=== PATIENT | female | born 1950 | race Caucasian/White ===

== ENCOUNTER → 2018-10-13 13:25 | Outpatient (CLI) | payer MEDICARE, OTHER, SELFPAY ==
--- NOTE | 2018-10-13 13:31 | BI_ITS ---
MAMMOGRAPHY - BILATERAL SCREENING REASON FOR EXAM: Female, 68 years old. Routine annual screening examination. PERTINENT HISTORY: Aunt with breast cancer. Remote right stereotactic breast biopsy. TECHNIQUE: Digital bilateral breast christofer (3D mammographic acquisition) in the CC and MLO projections. 2-D mediolateral oblique (MLO) and craniocaudad (CC) views of both breasts were obtained. CAD: Full Field Digital Mammography with Computer Added Detection was performed. COMPARISON: Comparison is made with prior study dated September 16, 2017 and September 01, 2016. FINDINGS: Breast Composition: The breasts are almost entirely fatty. There are no dominant masses or suspicious calcifications. Stable benign-appearing bilateral axillary lymph nodes. No other significant abnormalities are identified. There has been no significant change since the prior study. BI/SCREENING MAMM (CAD), BILAT IMPRESSION: Stable bilateral screening mammogram. Yearly follow-up mammogram recommended. (A) ASSESSMENT CATEGORY: BIRADS Category 1: Negative. A letter regarding these results will be sent to the patient by the facility within 30 days. Approximately 10% of breast cancers are not detected by mammography. A normal mammogram should not delay biopsy of a clinically suspicious abnormality. [id number] Electronically Signed: Seth Win MD at 15:55 EST , Service support ,
== END ==
PROVIDERS: Family Provider Internal Medicine; PCP Internal Medicine; Referring Provider Internal Medicine; Visit Provider Internal Medicine
DX: Z12.31 Encounter for screening mammogram for malignant neoplasm of breast (principal)
CPT/HCPCS: 77063; 77067

== ENCOUNTER → 2019-08-22 09:06 | Outpatient (CLI) | payer MEDICARE, OTHER, SELFPAY ==
[2017-01-23 17:04] VITALS: BMI 31.9
--- NOTE | 2019-08-22 09:16 | BD_ITS ---
STUDY: DUAL ENERGY X-RAY ABSORPTIOMETRY / DXA REASON FOR EXAM: Female, 69 years old. The patient is postmenopausal. TECHNIQUE: Bone Mineral Density (BMD) measurements of lumbar spine and bilateral hips were obtained. COMPARISON: Loss of height. FINDINGS: Lumbar Spine (L1-L4): g/cm2 (1.309) / T-score (1.1) / Z-score (2.7) Findings are suggestive of normal bone density with a low fracture risk. Left Femur Total: g/cm2 (1.118) / T-score (0.9) / Z-score (2.2) Left Femoral Neck: g/cm2 (0.973) / T-score (-0.5) / Z-score (1.1) Right Femur Total: g/cm2 (1.103) / T-score (0.8) / Z-score (2.1) Right Femoral Neck: g/cm2 (1.021) / T-score (-0.1) / Z-score (1.4) The T-Scores on the most recent prior examination were: Lumbar Spine (L1-L4): There has been worsening of bone density since the previous examination. Left Femur Total: which represents a worsening of 6.4%. Right Femur Total: which represents a worsening of 4.9%. BD/Dexa Bone Density Study IMPRESSION: The patient is considered normal as outlined below according to World Pablo Organization (WHO) criteria with a low fracture risk. There has been worsening of bone density since the previous examination. Reference Information: The T-score is the number of standard deviations above or below the standard which is normal for young adults at their peak bone mineral density. The World Health Organization (WHO) interprets the T-scores as follows: Above -1 Normal bone density Between -1 and -2.5 Osteopenia Equal to / or below -2.5 Osteoporosis As a practical clinical guideline, osteopenia may be graded as follows: Mild -1 through -1.5 Moderate -1.6 through -2.0 Severe -2.1 through -2.4 The Z-score is the number of standard deviations above or below age-matched controls. A Z-score of less than -1.5 would be considered abnormal. References: 1. NIH Osteoporosis and Related Bone Diseases http://www.osteo.org 2. International Society for Clinical Densitometry http://www.iscd.org 3. National Osteoporosis Foundation http://www.nof.org Electronically Signed: Seth Win, at 14:27 EST , Service support ,
== END ==
PROVIDERS: Family Provider Internal Medicine; PCP Internal Medicine; Referring Provider Internal Medicine; Visit Provider Internal Medicine
DX: Z78.0 Asymptomatic menopausal state (principal)
CPT/HCPCS: 77080

== ENCOUNTER → 2019-10-16 10:50 | Outpatient (CLI) | payer MEDICARE, OTHER, SELFPAY ==
[2017-01-23 17:04] VITALS: BMI 31.9
--- NOTE | 2019-10-16 10:54 | BI_ITS ---
MAMMOGRAPHY - BILATERAL SCREENING REASON FOR EXAM: Female, 69 years old. Routine annual screening examination. PERTINENT HISTORY: Aunt with breast cancer. Remote right stereotactic breast biopsy. TECHNIQUE: Digital bilateral breast liza (3D mammographic acquisition) in the CC and MLO projections. 2-D mediolateral oblique (MLO) and craniocaudad (CC) views of both breasts were obtained. CAD: Full Field Digital Mammography with Computer Added Detection was performed. COMPARISON: Comparison is made with prior study dated April 12, 2019 and September 16, 2017. FINDINGS: Breast Composition: There are scattered areas of fibroglandular density. There are no dominant masses or suspicious calcifications. Stable benign-appearing bilateral axillary lymph nodes. No other significant abnormalities are identified. There has been no significant change since the prior study. BI/SCREEN MAMM (CAD) W/LIZA BILAT IMPRESSION: Stable bilateral screening mammogram. Yearly follow-up mammogram recommended. (A) ASSESSMENT CATEGORY: BIRADS Category 2: Benign. A letter regarding these results will be sent to the patient by the facility within 30 days. Approximately 10% of breast cancers are not detected by mammography. A normal mammogram should not delay biopsy of a clinically suspicious abnormality. [id number] Electronically Signed: Seth Win, at 12:00 EST , Service support ,
== END ==
PROVIDERS: Family Provider Internal Medicine; PCP Internal Medicine; Referring Provider Internal Medicine; Visit Provider Internal Medicine
DX: Z12.31 Encounter for screening mammogram for malignant neoplasm of breast (principal)
CPT/HCPCS: 77063; 77067

== ENCOUNTER 2020-04-11 05:55 | Day surgery (SDC) | payer MEDICARE, OTHER, SELFPAY ==
[2020-03-13 07:39] VITALS: BMI 25.4
[2020-04-11] VITALS (9 sets, daily range): BP systolic 99–133; BP diastolic 55–77; PULSE 62–77; RESP 16–18; TEMP 36.1–36.3; O2SAT 99–100; BMI 25.4
--- NOTE | 2020-04-11 06:11 | PCM.HP.BLA ---
Problem List (1) Personal history of colonic polyps Status: Acute History and Physical Date of Admission: 04/11/20 Intake Visit Reasons: Due for 5yr C-Scope last done [facility] Allergies mezlocillin [From Mezlin] Allergy (Verified 03/13/20 07:41) Itching morphine Allergy (Verified 03/13/20 07:41) Itching CAT GUT SUTURES Adverse Reaction (Uncoded 03/13/20 07:41) Other VICRYL SUTURES Adverse Reaction (Uncoded 03/13/20 07:41) Other Medications Aspirin 81 mg PO 08/25/16 [History Confirmed 03/13/20] Multivit-Minerals/Folic Acid [One Daily Womens 50 Plus Tab] 0.4 mg PO 08/25/16 [History Confirmed 03/13/20] cholecalciferol (vitamin D3) 125 mcg (5,000 unit) capsule 125 mcg PO DAILY 03/13/20 [History Confirmed 03/13/20] omega-3 fatty acids 500 mg PO DAILY 03/13/20 [History] triamterene 37.5 mg-hydrochlorothiazide 25 mg tablet 1 tab PO DAILY 03/13/20 [History Confirmed 03/13/20] PFSH Medical History (Updated 03/13/20 @ 07:[address] Andrea Doshi MD) Skin lesion (Acute) Personal history of colonic polyps (Acute) Hypertension (Chronic) History of diverticulitis (Acute) Hemorrhoids (Acute) Constipation (Acute) Arthritis (Acute) Back problem (Acute) Surgical History (Updated 03/13/20 @ 07:37 by Lily Petersen) Hx of right breast biopsy (Acute) History of partial colectomy (Acute) Hx of abdominal surgery (Acute) Hx of appendectomy (Acute) Hx of tonsillectomy (Acute) Family History (Updated 03/13/20 @ 07:38 by Lily Petersen) Mother Arthritis Diabetes Hypertension Kidney disease Cancer Skin cancer High cholesterol Father Glioblastoma Social History (Updated 03/13/20 @ 07:[address] Andrea Doshi MD) Smoking Status: Never smoker second hand exposure: No alcohol intake: current alcohol intake frequency: holidays/special occasions only caffeine: Yes what type of physical activity do you participate in: running, aerobics, weight training, additional details: [employer] camp videos frequency: 5-6 times per week HPI HPI HPI: NEY VERDUZCO, is a 69 F who presents to the office today for surgical consultation regarding a colonoscopy. Her most recent colonoscopy was November 27, 2014. That was performed because of a personal history of colon polyps. There was evidence of a previous end-to-end colocolonic anastomosis in the distal sigmoid region. A few diverticulosis identified. No recurrent polyps at that time. The patient has previously undergone on May 15, 2010 a laparoscopic left colectomy with mobilization of the left colon and splenic flexure for acute sigmoid diverticulitis. The specimen measured 28 cm in length. She fortunately has not had any recurrent episodes of diverticulitis. She does however complain of chronic constipation. On occasion her bowels will function well. Occasionally she has to take MiraLAX to assist. She thought that fiber supplement worsened her condition. She has lost 40 pounds in weight over the past year. She has done an excellent job at self rehabilitation exercising and dieting. She denies bright red blood per rectum or melena. No abdominal pain. Her Alexander is also participated in this program HPI HPI HPI: NEY VERDUZCO, is a 69 F who presents to the office today for Exam Const General: cooperative, healthy appearing Nutritional Appearance: average body habitus Orientation: alert, awake HENMT Head: normal to inspection Chest Chest palpation & inspection: normal inspection of the chest Resp Effort & Inspection: normal respiratory effort Auscultation: clear to auscultation bilaterally Cardio Rate: regular rate Rhythm: regular rhythm GI Palpation: soft, no hepatosplenomegaly Skin Other: Left upper breast: 8 mm diameter slightly erythematous lesion. Not raised. Extrem General: no calf tenderness Psych Affect: normal affect Assessment & Plan Problems 1. Personal history of colonic polyps Z86.010 2. Skin lesion L98.9 3. Chronic constipation K59.09 Plan 69-year-old female with an intentional 40 pound weight loss over the past year. Now participating in routine diet and exercise. She has a personal history of colon polyps. She has a personal history of May 15, 2010 of a laparoscopic left colectomy performed for perforated sigmoid diverticulitis. She does have chronic constipation intermittently has to take MiraLAX. I propose for her a colonoscopy with possible biopsy or polypectomy is indicated. She has had an opportunity to ask and have questions answered. We will schedule and proceed at her discretion. I was previously able to accomplish this with meperidine 100 g and medazepam 4.5 mg IV. 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 The area on her account is improving. I have instructed her that if the area were to worsen that she should contact us and we would then prescribe Efudex therapy. With the amount of sun exposure that she currently is getting I am not prescribing it at this moment. Cc: Dr. Manjula Doshi M.D., F.A.C.S. Coding Level of Care Code Off vis,est,level 2 Diagnoses Personal history of colonic polyps Z86.010 Skin lesion L98.9 Chronic constipation K59.09 I have re-examined the patient. There are no clinical changes since date of exam. Procedure Criteria Procedure Type: Elective COVID Risk Discussion: The surgeon/proceduralist and patient have discussed in detail the risk of exposure to and/or potential harm posed by the COVID-19 virus with having a surgery/procedure at this time versus the risk of delaying the surgery/procedure. It is not possible to know either the risk of delaying the surgery or procedure or chance of getting an infection with perfect accuracy, but a joint decision was made between the patient and the surgeon/proceduralist to proceed at this time with the scheduled surgery/procedure as indicated on the consent form.
[2020-04-11] MEDS: Lactated Ringers 1,000 ML 100 ML IV (06:22)
--- NOTE | 2020-04-11 07:00 | COLBX_PTH ---
PATIENT: NEY VERDUZCO LOC: EN U#:[id number] AGE/SX: 69/F ROOM: RE04/11/[address]: Dr. Andrea Doshi MD : 1950 BED: DIS: 04/11/2020 SPEC #: [id number] RECD: 04/11/20 10:03 STATUS: MIGUEL CIRA #: [id number] DWAINE: 04/11/20 07:[address]: Andrea Doshi DEPT: SURGICAL PATHOLOGY RECD BY: Jett Lyons ENTERED: 04/11/20 10:47 SP TYPE: COLON BX OTHR DR: Dr. Manjula Coleman MD Tissues: Sigmoid colon biopsy Procedures: Surgery Specimen Level IV HEADER OPERATION: Colonoscopy (MOD) PRE-OP DIAGNOSIS: History of colon polyps TISSUE SUBMITTED: Proximal sigmoid polyp biopsy MICROSCOPIC DIAGNOSIS Proximal sigmoid polyp, biopsy: A fragment of colonic mucosa with focal adenomatous changes (early tubular adenoma). SJ:josé miguel 04/14/20 MICROSCOPIC DESCRIPTION Slides are reviewed. GROSS DESCRIPTION Received in fixative is one container labeled with the patient's name and designated proximal sigmoid polyp. The specimen consists of one irregular fragment of light dickerson soft tissue that measures 0.3 x 0.3 x 0.1 cm. The specimen is totally submitted in one cassette. / GUERA:josé miguel 04/11/20 TC:1 CPT: 43495
--- NOTE | 2020-04-11 07:18 | OP.CCLET_ITS ---
04/11/2020 Manjula Coleman [address] [place] [address] Re : Colonoscopy procedure for Hallie Betts Dear Dr. Coleman This procedure was performed on Saturday, April 11, 2020. My impressions and recommendations are as follows: Impressions : - Hemorrhoids found on perianal exam. - One 4 mm polyp in the proximal sigmoid colon, removed with a cold biopsy forceps. Resected and retrieved. - Diverticulosis in the sigmoid colon. - Patent end-to-end colo-colonic anastomosis, characterized by healthy appearing mucosa. Recommendations : - Discharge patient to home. - Resume previous diet. - Continue present medications. - Repeat colonoscopy in 5 years for surveillance based on pathology results. - Telephone my office for pathology results in 1 week. My findings are described in the full procedure note, which is enclosed. If I can be of further assistance, please feel free to contact me at Doctor phone number(s): Work: . Sincerely, Andrea Doshi MD 04/11/2020 7:18:01 AM This report has been signed electronically.
--- NOTE | 2020-04-11 07:18 | OP.COLON_ITS ---
Patient Name: Hallie Betts Procedure Date: 04/11/2020 6:48 AM Date of : 1950 Age: 69 Procedure: Colonoscopy Indications: High risk colon cancer surveillance: Personal history of colonic polyps Providers: Andrea Doshi MD Referring MD: Manjula Coleman Medicines: Midazolam 3.5 mg IV, Meperidine 100 mg IV Patient Profile: Last Colonoscopy: November 2014. Complications: No immediate complications. Procedure: Pre-Anesthesia Assessment: - Prior to the procedure, a History and Physical was performed, and patient medications and allergies were reviewed. The patient's tolerance of previous anesthesia was also reviewed. The risks and benefits of the procedure and the sedation options and risks were discussed with the patient. All questions were answered, and informed consent was obtained. Prior Anticoagulants: The patient has taken no previous anticoagulant or antiplatelet agents. ASA Grade Assessment: II - A patient with mild systemic disease. After reviewing the risks and benefits, the patient was deemed in satisfactory condition to undergo the procedure. After I obtained informed consent, the scope was passed under direct vision. Throughout the procedure, the patient's blood pressure, pulse, and oxygen saturations were monitored continuously. The pediatric colonoscope was introduced through the anus and advanced to the cecum, identified by appendiceal orifice and ileocecal valve. The colonoscopy was performed without difficulty. The patient tolerated the procedure well. The quality of the bowel preparation was adequate to identify polyps. The ileocecal valve and the appendiceal orifice were photographed. Moderate Sedation: Moderate (conscious) sedation was personally administered by the endoscopist. The following parameters were monitored: oxygen saturation, heart rate, blood pressure, and response to care. Total physician intraservice time was 15 minutes. Scope In: 7:01:25 AM Scope Withdrawal Time 0 hours 7 minutes 34 seconds Scope Out: 7:13:13 AM Total Procedure Duration Time 0 hours 11 minutes 48 seconds Findings: Hemorrhoids were found on perianal exam. A 4 mm polyp was found in the proximal sigmoid colon. The polyp was sessile. The polyp was removed with a cold biopsy forceps. Resection and retrieval were complete. Scattered diverticula were found in the sigmoid colon. There was evidence of a prior end-to-end colo-colonic anastomosis in the distal sigmoid colon. This was patent and was characterized by healthy appearing mucosa. Impression: - Hemorrhoids found on perianal exam. - One 4 mm polyp in the proximal sigmoid colon, removed with a cold biopsy forceps. Resected and retrieved. - Diverticulosis in the sigmoid colon. - Patent end-to-end colo-colonic anastomosis, characterized by healthy appearing mucosa. Recommendation: - Discharge patient to home. - Resume previous diet. - Continue present medications. - Repeat colonoscopy in 5 years for surveillance based on pathology results. - Telephone my office for pathology results in 1 week. Procedure Code(s): --- Professional --- 90058, Colonoscopy, flexible; with biopsy, single or multiple 12529, 59, Moderate sedation services provided by the same physician or other qualified health vocational childcare teacher performing the diagnostic or therapeutic service that the sedation supports, requiring the presence of an independent trained observer to assist in the monitoring of the patient's level of consciousness and physiological status; initial 15 minutes of intraservice time, patient age 5 years or older Diagnosis Code(s): --- Professional --- Z86.010, Personal history of colonic polyps K64.9, Unspecified hemorrhoids D12.5, Benign neoplasm of sigmoid colon Z98.0, Intestinal bypass and anastomosis status K57.30, Diverticulosis of large intestine without perforation or abscess without bleeding CPT copyright 2017 [employer]. All rights reserved. The codes documented in this report are preliminary and upon certified procedural coder review may be revised to meet current compliance requirements. Andrea Doshi MD 04/11/2020 7:18:01 AM This report has been signed electronically. Number of Addenda: 0 Note Initiated On: 04/11/2020 6:48 AM
== END 2020-04-11 08:00 | disposition home or self-care (01) ==
LOC: EN 05:56 → AC 05:57
PROVIDERS: PCP Internal Medicine; Referring Provider Internal Medicine; Visit Provider Surgery
PROC: 0DJD8ZZ Inspection of Lower Intestinal Tract, Via Natural or Artificial Opening Endoscopic (ICD-10-PCS; CPT 45378; principal; 2020-04-11 06:55)
DX: Z12.11 Encounter for screening for malignant neoplasm of colon (principal); Z87.19 Personal history of other diseases of the digestive system; Z11.59 Encounter for screening for other viral diseases; Z79.899 Other long term (current) drug therapy; Z79.82 Long term (current) use of aspirin; I10 Essential (primary) hypertension; M19.90 Unspecified osteoarthritis, unspecified site; K59.09 Other constipation; K64.9 Unspecified hemorrhoids; K57.30 Diverticulosis of large intestine without perforation or abscess without bleeding; D12.5 Benign neoplasm of sigmoid colon; Z98.0 Intestinal bypass and anastomosis status
CPT/HCPCS: 45380; 87635; 88305; 99152; 99153; G2023; J7120; U0003

== ENCOUNTER → 2020-10-20 10:38 | Outpatient (CLI) | payer MEDICARE, OTHER, SELFPAY ==
[2020-04-11 06:16] VITALS: BMI 25.4
--- NOTE | 2020-10-20 10:44 | BI_ITS ---
MAMMOGRAPHY - BILATERAL SCREENING REASON FOR EXAM: Female, 70 years old. Routine annual screening examination. PERTINENT HISTORY: Aunt with breast cancer. TECHNIQUE: Digital bilateral breast liza (3D mammographic acquisition) in the CC and MLO projections. 2-D mediolateral oblique (MLO) and craniocaudad (CC) views of both breasts were obtained. CAD: Full Field Digital Mammography with Computer Added Detection was performed. COMPARISON: Comparison is made with prior examination dated 10/16/2019 and 10/13/2018. FINDINGS: Breast Composition: There are scattered areas of fibroglandular density. There are no dominant masses or suspicious calcifications. Stable small benign-appearing bilateral axillary lymph nodes. No other significant abnormalities are identified. There has been no significant change since the prior study. BI/SCRN MAMM (CAD)W/LIZA BILAT IMPRESSION: Stable bilateral screening mammogram. Yearly follow-up mammogram recommended. (A) ASSESSMENT CATEGORY: BIRADS Category 2: Benign. A letter regarding these results will be sent to the patient by the facility within 30 days. Approximately 10% of breast cancers are not detected by mammography. A normal mammogram should not delay biopsy of a clinically suspicious abnormality. [id number] Electronically Signed: Seth Win MD at 14:39 EST , Service support ,
== END ==
PROVIDERS: PCP Internal Medicine; Referring Provider Internal Medicine; Visit Provider Internal Medicine
DX: Z12.31 Encounter for screening mammogram for malignant neoplasm of breast (principal)
CPT/HCPCS: 77063; 77067

== ENCOUNTER 2021-07-13 11:56 | Emergency (ER) | payer MEDICARE, OTHER, SELFPAY ==
[2021-07-13 11:57] VITALS: BP 151/92; PULSE 78; RESP 20; TEMP 36.3; O2SAT 99; BMI 25.2
--- NOTE | 2021-07-13 12:10 | EKG12_ITS ---
Test Reason : R CP & BACK PAIN Blood Pressure : / mmHG Vent. Rate : 068 BPM Atrial Rate : 068 BPM P-R Int : 140 ms QRS Dur : 084 ms QT Int : 400 ms P-R-T Axes : 063 031 047 degrees QTc Int : 425 ms Normal sinus rhythm with occasional PVC's Confirmed by FLAKITO JESSICA, YUNIOR ([id number]), publishing editor MICHAEL RODRIGUEZ ([id number]) on 07/15/2021 9:04:17 AM Referred By: LAY/KOJO Confirmed By:YUNIOR FRAGA MD
[2021-07-13 12:50] LABS: Absolute Lymphocyte Count 0.91 X10^3/uL (0.83-4.51); Absolute Neutrophil Count 7.5 X10^3/uL (2.0-7.7); Basophil# 0.02 X10^3/uL; Basophil% 0.2 % (0-1); Eosinophil# 0.13 X10^3/uL; Eosinophils% 1.4 % (0-5); Hematocrit 45.8 % (37-47); Lymphocyte # 0.91 X10^3/ul (0.83-4.51); Lymphocyte % 10.1 % (19-41); Mean Corp Hgb Conc 32.8 g/dL (32-36); Mean Corpuscular Hgb 29.1 pg (27.0-32.0); Mean Corpuscular Volume 88.9 fL (81-99); Mean Platelet Vol. 10.2 fl (6.2-12.0); Monocyte# 0.37 X10^3/uL; Monocyte% 4.1 % (0-10); NRBC Flagged by Analyzer 0 % (0-5); Neutrophil # 7.54 X10^3/uL (2.7-7.7); Neutrophil % 83.9 % (47-70); Platelet Count 238 K/mm3 (150-450); RBC Distribution Width CV 12.6 % (11.6-14.6); RBC Distribution Width SD 41.5 fl (35.1-43.9); Red Blood Count 5.15 M/mm3 (4.2-5.4)
[2021-07-13] MEDS: 0.9% Normal Saline 1,000 ML 999 ML IV (12:50)
[2021-07-13] MEDS: Ketorolac 30 MG/ML Syringe IV (12:50)
[2021-07-13] MEDS: Orphenadrine 60 MG/2 ML Ampul IV (12:50)
[2021-07-13 12:57] LABS: Prothrombin Time (Protime)PT. 12.7 SECONDS (11.7-14.9)
[2021-07-13 12:59] LABS: Partial Thromboplast Time 27.8 Seconds (24.1-36.2)
[2021-07-13 13:07] LABS: Anion Gap 6 (5-15); BUN 20 mg/dL (7-18); BUN/Creat Ratio 18.7 RATIO (10-20); Calcium,Total 9.2 mg/dL (8.5-10.1); Chloride 102 mmol/L (98-107); Creatinine, Serum 1.07 mg/dL (0.55-1.02); EST Glomerular Filtration Rate 54 mL/min (>60); Est Glom Filt Rate - Afr Amer 65 mL/min (>60); Estimated Creatinine Clearance 46.45 ml/min; Glucose 116 mg/dL (74-106); Potassium 4.3 mmol/L (3.5-5.1); Sodium Level 138 mmol/L (136-145); Troponin-I HS 5 pg/mL (3.0-54.0)
--- NOTE | 2021-07-13 13:25 | CT_ITS ---
STUDY: CTA CHEST REASON FOR EXAM: Female, 71 years old. Chest pain / ? PE RADIATION DOSAGE (If Supplied By Facility): CTDIvol = ( 10.30 ) mGy, DLP = ( 391.49 ) mGycm TECHNIQUE: The examination was performed with the intravenous administration of IV 100mL Isovue-300. Post-processing of the angiographic images was performed, with multiplanar reformation and 3D reconstruction. Individualized dose optimization techniques were used for this CT. COMPARISON: None. FINDINGS: Normal enhancement of the main pulmonary artery and right and left pulmonary arteries. Normal enhancement of the bilateral peripheral pulmonary arteries. There is no demonstrated pulmonary embolism. Normal thoracic aorta and visualized great vessels. There is no demonstrated aortic dissection. Normal heart and pericardium. Normal mediastinum. Normal hilar regions. Normal visualized trachea and bronchi. The lungs are well expanded. There is a 2.3 cm x 2 cm cyst in the posterior aspect of the right upper lobe. Mild degree of emphysematous changes. Mild degree of increased markings at the lung bases suggests mild linear atelectasis and/or scarring Normal pleura. Normal chest wall structures. Normal osseous structures. There is a 2.7cm x 2.5 cm cyst in the lateral upper pole of the left kidney. Small hiatal hernia. CT/CTA Chest W/WO Contrast IMPRESSION: No evidence of pulmonary embolism. Small bulla in the posterior aspect of the right upper lobe. Mild degree of emphysematous changes. Electronically Signed: Seth Win MD at 14:08 EDT , Service support ,
[2021-07-13] MEDS: Ondansetron 4 MG/2 ML Vial IV (14:31)
[2021-07-13] MEDS: HYDROmorphone 1 MG/ML Syringe IV (14:31)
--- NOTE | 2021-07-13 14:47 | EDS_ITS ---
HPI History of Present Illness Chief Complaint: Back Narrative Narrative: Patient is a 71-year-old female who states that she noticed some mild pain in her right upper back with no trauma the other day. She states she went to go running this morning and with each step felt pain in her right upper back. She states that she went to an urgent care who advised her to come to the hospital for further evaluation because of the upper back pain. She denies any fevers or chills she denies any recent surgery or travel or history of DVT/PE. She does state the area is painful with palpation and does worsen with any type of motion. [facility] Medical History Arthritis Back problem Constipation Hemorrhoids History of diverticulitis Hypertension Personal history of colonic polyps Skin lesion Home Medications aspirin 81 mg PO DAILY 08/25/16 [History Last Taken 01/23/17] multivit with min-folic acid 0.4 mg PO DAILY 08/25/16 [History Last Taken 01/23/17] cholecalciferol (vitamin D3) 125 mcg (5,000 unit) capsule 125 mcg PO DAILY 03/13/20 [History Last Taken Unknown] omega-3 fatty acids 500 mg PO DAILY 03/13/20 [History Last Taken Unknown] triamterene 37.5 mg-hydrochlorothiazide 25 mg tablet 1 tab PO DAILY 03/13/20 [History Last Taken 04/11/20] methocarbamol 500 mg PO Q6H PRN #40 tab 07/13/21 [Rx Last Taken Unknown] oxycodone-acetaminophen [Percocet] 1 tab PO Q6H PRN 3 Days #12 tab 07/13/21 [Rx Last Taken Unknown] Allergy/AdvReac Type Severity Reaction Status Date / Time mezlocillin [From Mezlin] Allergy Itching Verified 07/13/21 12:54 morphine Allergy Itching Verified 07/13/21 12:54 CAT GUT SUTURES AdvReac Other Uncoded 07/13/21 12:54 VICRYL SUTURES AdvReac Other Uncoded 07/13/21 12:54 Family History Mother Arthritis Diabetes Hypertension Kidney disease Cancer Skin cancer High cholesterol Father Glioblastoma Surgical History History of partial colectomy Hx of abdominal surgery Hx of appendectomy Hx of right breast biopsy Hx of tonsillectomy Social History (Updated 03/13/20 @ 07:[address] Andrea Doshi MD) Smoking Status: Never smoker second hand exposure: No alcohol intake: current alcohol intake frequency: holidays/special occasions only caffeine: Yes what type of physical activity do you participate in: running, aerobics, weight training and additional details: Boot camp videos frequency: 5-6 times per week ROS ROS ED Constitutional Constitutional ED: Denies chills or fever(s) ENT ENT ED: Denies sore throat Cardiovascular Cardiovascular: Denies chest pain Respiratory/Chest Respiratory/Chest: Denies cough or dyspnea Gastrointestinal Gastrointestinal: Denies abdominal pain, diarrhea, nausea or vomiting Genitourinary Genitourinary ED: Denies dysuria Musculoskeletal Musculoskeletal: Reports back pain; Denies myalgias Integumentary Denies rash Neurologic Neurologic: Denies headache(s) Hematologic/Lymphatic Hematologic/Lymphatic: Denies easy bleeding or easy bruising EXAM Physical Exam Const Vital Signs: 07/13/21 11:57 07/13/21 15:13 Temperature 97.3 F L Temperature Source Temporal Pulse Rate 78 78 Respiratory Rate 20 H 16 Blood Pressure 151/92 H 147/89 H Blood Pressure Mean 111 Pulse Ox 99 98 Oxygen Delivery Method Room Air Positive well nourished and well developed General Appearance ED: well developed HEENT Reports moist mucous membranes Eyes PERRL and EOMs intact bilaterally Neck supple Chest Wall palpation of chest normal Resp normal respiratory effort and clear to auscultation bilaterally Cardio regular rate and regular rhythm Rate: other Other Details: Radial pulses are +2-4 bilaterally are equal and symmetric GI normal to inspection, nondistended, normoactive bowel sounds, non-tender and non-distended GI Narrative: No voluntary guarding no rigidity no pulsatile mass Auscultation: normoactive bowel sounds Palpation: soft Back/Spine Back/Spine Narrative: No bony deformity or step-off of the thoracic or lumbar spine no midline pain with palpation. There is spasm and reproducible pain of the right mid parathoracic muscle belly region near the inferior portion of the scapula. Pain worsens with motion. No overlying soft tissue changes to suggest trauma or infection Extremity normal to inspection Neuro oriented x3 and CN's II-XII intact bilaterally Sensorium / Orientation: alert Psych mental status grossly normal Skin no rashes or lesions noted MDM MDM MDM Narrative Medical decision making narrative: Patient's history and exam is most consistent with a musculoskeletal cause of her pain but with concern for possible PE or cardiac event causing her symptoms a basic work-up was obtained. Blood work revealed no clinically significant findings and CTA of the chest revealed no PE or dissection. Therefore at this time I do feel symptoms are musculoskeletal in nature and patient was given Toradol Norflex and Dilaudid and did have moderate improvement of her symptoms. Therefore is the work-up does not reveal any obvious cardiac dysfunction or lung pathology as the cause patient can be discharged with symptomatic medications Lab Data Attestation: I reviewed the patient's lab results. Labs: Laboratory Results - last 24 hr 07/13/21 07/13/21 07/13/21 12:44 12:44 12:44 WBC 9.0 RBC 5.15 Hgb 15.0 Hct 45.8 MCV 88.9 MCH 29.1 MCHC 32.8 RDW Std Deviation 41.5 RDW Coeff of Rohini 12.6 Plt Count 238 MPV 10.2 Immature Gran % (Auto) 0.300 Neut % (Auto) 83.9 H Lymph % (Auto) 10.1 L [place] % (Auto) 4.1 Eos % (Auto) 1.4 Baso % (Auto) 0.2 Absolute Neuts (auto) 7.5 Absolute Lymphs (auto) 0.91 Nucleated RBC % 0 PT 12.7 INR 1.0 APTT 27.8 Sodium 138 Potassium 4.3 Chloride 102 Carbon Dioxide 30.0 Anion Gap 6 BUN 20 H Creatinine 1.07 H Estim Creat Clear Calc 46.45 Est GFR (MDRD) Af Amer 65 Est GFR (MDRD) Non-Af 54 L BUN/Creatinine Ratio 18.7 Glucose 116 H Calcium 9.2 Troponin I High Sens 5 Radiography Diagnostic Testing: Clinical Impression(s) from Imaging Studies Chest CTA 07/13/21 13:25 IMPRESSION: No evidence of pulmonary embolism. Small bulla in the posterior aspect of the right upper lobe. Mild degree of emphysematous changes. Electronically Signed: Seth Win MD at 14:08 EDT , Service support , Discharge Plan Triage Chief Complaint: Back ED Provider: Ambrosio John Dx/Rx/DC Orders Clinical Impression: Acute thoracic myofascial strain Instructions: ED Back Spasm, No Trauma, ED Back Sprain/Strain Prescriptions: New oxycodone-acetaminophen [Percocet] 5-325 mg tablet 1 tab PO Q6H PRN (Reason: pain) 3 Days Qty: 12 RF: 0 methocarbamol 500 mg tablet 500 mg PO Q6H PRN (Reason: Muscle pain/spasm) Qty: 40 RF: 0 No Action triamterene-hydrochlorothiazid 37.5-25 mg tablet 1 tab PO DAILY RF: 0 cholecalciferol (vitamin D3) 125 mcg (5,000 unit) capsule 125 mcg PO DAILY RF: 0 omega-3 fatty acids capsule 500 mg PO DAILY RF: 0 multivit with min-folic acid 0.4 MG tablet 0.4 mg PO DAILY RF: 0 aspirin 81 MG tablet,chewable 81 mg PO DAILY RF: 0 Primary Care Provider: Manjula Coleman Referrals: Manjula Coleman MD [Primary Care Provider] - Disposition Disposition: Home, Self Care Discharge Date/Time: 07/13/21 15:13
[2021-07-13 15:13] VITALS: BP 147/89; PULSE 78; RESP 16; O2SAT 98
== END 2021-07-13 15:13 | disposition home or self-care (01) ==
PROVIDERS: Emergency Provider Emergency Medicine; PCP Internal Medicine
DX: S29.012A Strain of muscle and tendon of back wall of thorax, initial encounter (principal); I10 Essential (primary) hypertension; Z87.19 Personal history of other diseases of the digestive system; Z79.82 Long term (current) use of aspirin; Z79.899 Other long term (current) drug therapy; X58.XXXA Exposure to other specified factors, initial encounter
CPT/HCPCS: 71275; 80048; 84484; 85025; 85610; 85730; 93005; 96374; 96375; 99283; J7030; Q9967; A4216; J2405

== ENCOUNTER 2021-10-21 09:02 | Outpatient (CLI) | payer MEDICARE, OTHER, SELFPAY ==
--- NOTE | 2021-10-21 09:05 | BI_ITS ---
MAMMOGRAPHY - BILATERAL SCREENING REASON FOR EXAM: Female, 71 years old. Routine annual screening examination. PERTINENT HISTORY: Aunt with breast cancer. Remote right stereotactic breast biopsy. TECHNIQUE: Digital bilateral breast liza (3D mammographic acquisition) in the CC and MLO projections. 2-D mediolateral oblique (MLO) and craniocaudad (CC) views of both breasts were obtained. CAD: Full Field Digital Mammography with Computer Added Detection was performed. COMPARISON: Comparison is made with prior study dated 10/20/2020 and 10/16/2019. FINDINGS: Breast Composition: There are scattered areas of fibroglandular density. There are no dominant masses or suspicious calcifications. A tissue clip marker is seen in the slightly upper medial aspect of the right breast. No other significant abnormalities are identified. There has been no significant change since the prior study. BI/SCRN MAMM (CAD)W/LIZA BILAT IMPRESSION: Stable bilateral screening mammogram. Yearly follow-up mammogram recommended. (A) ASSESSMENT CATEGORY: BIRADS Category 2: Benign. A letter regarding these results will be sent to the patient by the facility within 30 days. Approximately 10% of breast cancers are not detected by mammography. A normal mammogram should not delay biopsy of a clinically suspicious abnormality. [id number] Electronically Signed: Seth Win MD at 10:07 EST ,
== END 2021-10-21 23:59 | disposition short-term general hospital (02) ==
LOC: OPBI 09:03
PROVIDERS: PCP Internal Medicine; Referring Provider Internal Medicine; Visit Provider Internal Medicine
DX: Z12.31 Encounter for screening mammogram for malignant neoplasm of breast (principal)
CPT/HCPCS: 77063; 77067

== ENCOUNTER → 2022-10-25 | Outpatient (CLI) | payer MEDICARE, OTHER, SELFPAY ==
--- NOTE | 2022-10-25 09:02 | BI_ITS ---
MAMMOGRAPHY - BILATERAL SCREENING REASON FOR EXAM: Female, 72 years old. Routine annual screening examination. PERTINENT HISTORY: Aunt with breast cancer. History of prior right stereotactic breast biopsy. TECHNIQUE: Digital bilateral breast liza (3D mammographic acquisition) in the CC and MLO projections. 2-D mediolateral oblique (MLO) and craniocaudad (CC) views of both breasts were obtained. CAD: Full Field Digital Mammography with Computer Added Detection was performed. COMPARISON: Comparison is made with prior study dated 10/21/2021 and 10/20/2020. FINDINGS: Breast Composition: There are scattered areas of fibroglandular density. There are no dominant masses or suspicious calcifications. A tissue clip marker is once again seen in the slightly upper medial aspect of the right breast. No other significant abnormalities are identified. There has been no significant change since the prior study. BI/SCRN MAMM (CAD)W/LIZA BILAT IMPRESSION: Stable bilateral screening mammogram. Yearly follow-up mammogram recommended. (A) ASSESSMENT CATEGORY: BIRADS Category 2: Benign. A letter regarding these results will be sent to the patient by the facility within 30 days. Approximately 10% of breast cancers are not detected by mammography. A normal mammogram should not delay biopsy of a clinically suspicious abnormality. [id number] Electronically Signed: Seth Win MD at 14:06 EST ,
== END | disposition home or self-care (01) ==
LOC: OPBI 08:58
PROVIDERS: PCP Internal Medicine; Visit Provider Internal Medicine
DX: Z12.31 Encounter for screening mammogram for malignant neoplasm of breast (principal)
CPT/HCPCS: 77063; 77067

== ENCOUNTER → 2023-10-27 | Outpatient (CLI) | payer MEDICARE, OTHER, SELFPAY ==
--- NOTE | 2023-10-27 08:36 | BI_ITS ---
MAMMOGRAPHY - BILATERAL SCREENING REASON FOR EXAM: Female, 73 years old. Routine annual screening examination. PERTINENT HISTORY: Aunt with breast cancer. History of prior right stereotactic breast biopsy. TECHNIQUE: Digital bilateral breast liza (3D mammographic acquisition) in the CC and MLO projections. 2-D mediolateral oblique (MLO) and craniocaudad (CC) views of both breasts were obtained. CAD: Full Field Digital Mammography with Computer Added Detection was performed. COMPARISON: Comparison is made with prior study July 25, 2023 and October 21, 2021. FINDINGS: Breast Composition: There are scattered areas of fibroglandular density. There are no dominant masses or suspicious calcifications. A tissue clip marker is once again seen in the slightly upper medial aspect of the right breast. No other significant abnormalities are identified. There has been no significant change since the prior study. BI/SCRN MAMM (CAD)W/LIZA BILAT IMPRESSION: Stable bilateral screening mammogram. Yearly follow-up mammogram recommended. (A) ASSESSMENT CATEGORY: BIRADS Category 2: Benign. A letter regarding these results will be sent to the patient by the facility within 30 days. Approximately 10% of breast cancers are not detected by mammography. A normal mammogram should not delay biopsy of a clinically suspicious abnormality. [id number] Electronically Signed: Seth Win MD at 9:36 EST ,
--- OUTSIDE RECORDS SUMMARY | 2023-10-27 08:58 | XMS RPT_ITS | CCD ---
Author Name Unknown Address [address] [place] [address] Organization [facility] Care Team Providers Care [employer] Hatcher[employer] Worker Name Role Phone Jared JESSICA, Stephanie Sinclair Primary Care Provider TALAMPAS, STEPHANIE Primary Care Unavailable TALAMPAS, STEPHANIE Referring Unavailable TALAMPAS, STEPHANIE Primary Care Unavailable TALAMPAS, STEPHANIE Attending Unavailable TALAMPAS, STEPHANIE Primary Care Unavailable TALAMPAS, STEPHANIE Referring Unavailable THERESE HAYES Attending Unavailable TALAMPAS, STEPHANIE Primary Care Unavailable TALAMPAS, STEPHANIE Primary Care Unavailable TALAMPAS, STEPHANIE Attending Unavailable GLENDY, CRISTAL L Referring Unavailable GLENDY, CRISTAL L Attending Unavailable TALAMPAS, STEPHANIE Primary Care Unavailable TALAMPAS, STEPHANIE Primary Care Unavailable TALAMPAS, STEPHANIE Referring Unavailable TALAMPAS, STEPHANIE Primary Care Unavailable TALAMPAS, STEPHANIE Attending Unavailable Allergies Allergy Classification Reported Allergen(s) Allergy Type Date of Onset Reaction(s) Facility (13 sources) Mezlocillin Drug Allergy 6 Itching [facility] Work Phone: (14 sources) Morphine; Translations: [MORPHINE] Drug Allergy 6 Itching [facility] Work Phone: (13 sources) chromic cat gut [Other] Propensity to adverse reactions 6 [facility] Work Phone: (13 sources) vicyrl [Other] Propensity to adverse reactions 7 [facility] Work Phone: (1 source) Mezlocillin; Translations: [MEZLIN] Drug Allergy 4 [facility] (1 source) VICRYL PLUS SUTURES; Translations: [VICRYL PLUS SUTURES] Propensity to adverse reactions (disorder) 4 [facility] (1 source) OTHER; Translations: [OTHER] Propensity to adverse reactions (disorder) 7 [facility] Medications Current Medications Medication Drug Class(es) Dates Sig (Normalized) Sig (Original) nirmatrelvir tablet 300 mg (150 mg x 2) and ritonavir tablet 100 mg in a dose pack (PAXLOVID) (3 sources) Start: 11-12-2022 End: 11-17-2022 nirmatrelvir tablet 300 mg (150 mg x 2) and ritonavir tablet 100 mg in a dose pack (PAXLOVID) Indications: COVID-19 Administer TWO pink nirmatrelvir 150 mg tablets and ONE white ritonavir 100 mg tablet for a total of three tablets twice daily. 30 tablet 0 11/12/2022 11/17/2022 Active Completed/Discontinued Medications Medication Drug Class(es) Dates Sig (Normalized) Sig (Original) aspirin 81 mg delayed release oral tablet (2 sources) Platelet Aggregation Inhibitor, Nonsteroidal Anti-inflammatory Drug End: 08-13-2022 take 1 tablet by mouth once daily aspirin, enteric coated (ASPIRIN, ENTERIC COATED) 81 mg EC tablet Take 81 mg by mouth once daily. 0 08/13/2022 Discontinued (Other) Problems Active Problems Problem Classification Problem Date Documented Date Episodic/Chronic Disorders of lipid metabolism (3 sources) Dyslipidemia; Translations: [Hyperlipidemia, unspecified] Onset: 04-04-2023 Chronic Diverticulosis and diverticulitis (13 sources) Diverticulitis of large intestine without perforation or abscess without bleeding; Translations: [Diverticulitis of colon (without mention of hemorrhage)] Onset: 01-27-2007 01-27-2007 Chronic Essential hypertension (16 sources) Essential hypertension; Translations: [Essential (primary) hypertension] Onset: 10-03-2015 10-03-2015 Chronic Genitourinary symptoms and ill-defined conditions (1 source) Urge incontinence of urine; Translations: [Urge incontinence] Chronic Nutritional deficiencies (16 sources) Vitamin D deficiency; Translations: [Vitamin D deficiency, unspecified] Onset: 02-02-2011 02-02-2011 Chronic Other aftercare (1 source) Patient encounter status; Translations: [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] Episodic Other congenital anomalies (13 sources) Congenital anomaly of skin; Translations: [Other specified congenital malformations of skin] Onset: 01-26-2007 01-26-2007 Chronic Other female genital disorders (1 source) Cyst of vulva; Translations: [Vulvar cyst] Episodic Other nutritional; endocrine; and metabolic disorders (13 sources) Metabolic syndrome X; Translations: [Metabolic syndrome] Onset: 08-05-2011 08-05-2011 Chronic Other upper respiratory disease (13 sources) Allergic rhinitis; Translations: [Allergic rhinitis, unspecified] 10-03-2015 Chronic Viral infection (1 source) Disease caused by 2019-nCoV; Translations: [COVID-19] Episodic Past or Other Problems Problem Classification Problem Date Documented Da te Episodic/Chronic Diabetes mellitus without complication (3 sources) Impaired fasting glycemia; Translations: [Impaired fasting glucose] Onset: 04-04-2023 Episodic Other aftercare (1 source) 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; Translations: [Encounter for long-term current use of medication] Onset: 03-28-2023 Episodic Other and unspecified benign neoplasm (13 sources) Polyp of colon; Translations: [Polyp of colon] Onset: 07-03-2010 07-03-2010 Episodic Other gastrointestinal disorders (13 sources) Chronic constipation; Translations: [Other constipation] Onset: 02-04-2012 02-04-2012 Episodic Other screening for suspected conditions (not mental disorders or infectious disease) (17 sources) Mammography abnormal; Translations: [Other abnormal and inconclusive findings on diagnostic imaging of breast] Onset: 06-07-2006 06-07-2006 Episodic Other skin disorders (13 sources) Skin lesion; Translations: [Disorder of the skin and subcutaneous tissue, unspecified] Onset: 11-15-2014 11-15-2014 Episodic Spondylosis; intervertebral disc disorders; other back problems (13 sources) Thoracic back pain; Translations: [Dorsalgia, unspecified] Onset: 07-24-2021 07-24-2021 Episodic Varicose veins of lower extremity (13 sources) Venous varices; Translations: [Asymptomatic varicose veins of unspecified lower extremity] Onset: 12-04-2014 12-04-2014 Episodic Results Test Name Value Interpretation Reference Range Facil ity Vital Signs Date Time Vital Sign Value Performing Clinician Faci lity 04-04-2023 15:38-0400 Diastolic blood pressure 78 mm[Hg] Stephanie Coleman MD Work Phone: [facility] 04-04-2023 15:38-0400 Systolic blood pressure 128 mm[Hg] Stephanie Coleman MD Work Phone: [facility] 04-04-2023 14:53-0400 Body temperature 97.81 [degF] Stephanie Coleman MD Work Phone: [facility] 04-04-2023 14:53-0400 Body weight 82.56 kg Stephanie Coleman MD Work Phone: [facility] 04-04-2023 14:53-0400 Heart rate 78 /min Stephanie Coleman MD Work Phone: [facility] 04-04-2023 14:53-0400 Respiratory rate 18 /min Stephanie Coleman MD Work Phone: [facility] 04-04-2023 14:53-0400 SaO2% (BldA) [Mass fraction] 97 % Stephanie Coelman MD Work Phone: [facility] 09-07-2022 09:39-0500 Body height 165.1 cm Cristal Doran MD Work Phone: [facility] 09-07-2022 09:39-0500 Body weight 81.19 kg Cristal Doran MD Work Phone: [facility] 09-07-2022 09:39-0500 Diastolic blood pressure 82 mm[Hg] Cristal Doran MD Work Phone: [facility] 09-07-2022 09:39-0500 Systolic blood pressure 148 mm[Hg] Cristal Doran MD Work Phone: [facility] 08-13-2022 12:12-0500 Diastolic blood pressure 84 mm[Hg] Stephanie Coleman MD Work Phone: [facility] 08-13-2022 12:12-0500 Systolic blood pressure 138 mm[Hg] Stephanie Coleman MD Work Phone: [facility] 08-13-2022 11:23-0500 Body weight 78.02 kg Stephanie Coleman MD Work Phone: [facility] 08-13-2022 11:23-0500 Heart rate 69 /min Stephanie Coleman MD Work Phone: [facility] 08-13-2022 11:23-0500 SaO2% (BldA) [Mass fraction] 97 % Stephanie Coleman MD Work Phone: [facility] Encounters Encounter Date Encounter Type Care Provider Facility Start: 10-12-2023 End: 10-12-2023 ambulatory STEPHANIE COLEMAN Facility:[facility] Start: 09-27-2023 End: 09-28-2023 ambulatory CRISTAL DORAN Facility:[facility] Start: 09-27-2023 Encounter for gynecological examination (general) (routine) without abnormal findings CRISTAL ODRAN [facility] Start: 09-26-2023 End: 09-27-2023 [facility] Start: 08-16-2023 End: 08-16-2023 [facility] Start: 07-08-2023 End: 07-08-2023 ambulatory [facility] Facility:[facility] Start: 07-08-2023 End: 07-08-2023 ambulatory [facility] Nurse [facility] Work Phone: [facility] Start: 04-04-2023 End: 04-05-2023 [facility] Start: 04-04-2023 End: 04-04-2023 Office outpatient visit 25 minutes Stephanie Coleman MD Work Phone: [facility] [place] Procedures Date Procedure Procedure Detail Performing Clinician Start: 07-08-2023 INFLUENZA VACCINE, P RSV FREE, AGE 65+ YR, HIGH DOSE, QUADRIVALENT (FLUZONE HIGH-DOSE) Gwendolyn Hayes APRN.REEL REPAIRER Work Phone: Start: 03-28-2023 Lipid 1996 panel - S royal or Plasma Immunization [place] Work Phone: Start: 10-21-2021 Mammography Stephanie brink MD Work Phone: Start: 04-11-2020 Colonoscopy Stephanie brink MD Work Phone: Plan of Treatment Date Care Activity Detail Author Start: 03-28-2028 Lipid 1996 panel - Serum or Plasma Lipid Screening [facility] Start: 03-28-2028 LIPID SCREEN LIPID SCREEN [facility] Start: 08-03-2027 LIPID SCREEN LIPID SCREEN [facility] Start: 04-12-2027 Urine microalbumin profile [facility] Start: 03-28-2026 DIABETES SCREEN DIABETES SCREEN [facility] Start: 03-28-2026 Diabetes Screening Diabetes Screening [facility] Start: 11-05-2025 LIPID SCREEN LIPID SCREEN [facility] Start: 08-03-2025 DIABETES SCREEN DIABETES SCREEN [facility] Start: 04-11-2025 Colonoscopy COLONOSCOPY [facility] Start: 04-11-2025 COLORECTAL CANCER SCREENING COLORECTAL CANCER SCREENING [facility] Start: 04-04-2024 ANNUAL PCP TEAM CHRONIC DISEASE VISIT ANNUAL PCP TEAM CHRONIC DISEASE VISIT [facility] Start: 04-04-2024 BP CONTROLLED (<130/80) BP CONTROLLED (<130/80) [facility] Start: 11-05-2023 DIABETES SCREEN DIABETES SCREEN [facility] Start: 10-05-2023 End: 12-05-2023 25-hydroxyvitamin D3 [Mass/volume] in Serum or Plasma VITAMIN D 25 HYDROXY Lab Routine Vitamin D deficiency Expected: 10/05/2023 (Approximate), Expires: 12/05/2023 [facility] Work Phone: Immunizations Immunization Date Immunization Notes Care Provider Michelet cárdenas 07-08-2023 influenza (HD-IIV4) vaccine, age 65+ yr, high dose, quadrivalent, PF (FLUZONE HIGH-DOSE) Immunization [facility] Work Phone: [facility] Work Phone: 01-26-2023 zoster vaccine recombinant Stephanie Coleman MD Work Phone: [facility] 10-29-2022 zoster vaccine recombinant Stephanie Coleman MD Work Phone: [facility] Work Phone: 07-16-2022 influenza, high dose seasonal, preservative-free Stephanie Coleman MD Work Phone: [facility] Work Phone: 06-18-2022 COVID-19 booster vaccine, age 12+ yr, bivalent (MODERNA) Cristal Doran MD Work Phone: [facility] 06-18-2022 COVID-19 booster vaccine, age 12+ yr, bivalent (PFIZER-BIONTECH) Stephanie Coleman MD Work Phone: [facility] Work Phone: 06-05-2021 influenza, high-dose , quadrivalent vaccine (FLUZONE HIGH DOSE QUADRIVALENT) Stephanie Coleman MD Work Phone: [facility] 07-18-2020 influenza, high-dose , quadrivalent vaccine (FLUZONE HIGH DOSE QUADRIVALENT) Stephanie Coleman MD Work Phone: [facility] Work Phone: 05-29-2019 influenza, high dose seasonal, preservative-free Stephanie Coleman MD Work Phone: [facility] Work Phone: 10-16-2018 pneumococcal polysaccharide vaccine, 23 valent Stephanie Coleman MD Work Phone: [facility] 07-22-2018 influenza, high dose seasonal, preservative-free Stephanie Coleman MD Work Phone: [facility] 09-30-2017 pneumococcal conjuga te vaccine, 13 valent Stephanie Coleman MD Work Phone: [facility] 08-26-2017 influenza, high dose seasonal, preservative-free Stephanie Coleman MD Work Phone: [facility] 04-12-2017 tetanus toxoid, redu rubia diphtheria toxoid, and acellular pertussis vaccine, adsorbed Stephanie Coleman MD Work Phone: [facility] Work Phone: 07-09-2016 influenza, injectabl e, quadrivalent, contains preservative Stephanie Coleman MD Work Phone: [facility] Work Phone: 07-14-2015 influenza, injectabl e, quadrivalent, contains preservative Stephanie Coleman MD Work Phone: [facility] 07-03-2014 influenza, seasonal, injectable Stephanie Coleman MD Work Phone: [facility] Work Phone: 08-13-2013 influenza virus vaccine, unspecified formulation Stephanie Coleman MD Work Phone: [facility] 02-05-2013 zoster vaccine, live Stephanie landis MD Work Phone: [facility] 07-29-2012 influenza virus vaccine, unspecified formulation Stephanie Coleman MD Work Phone: [facility] 07-10-2011 influenza virus vaccine, unspecified formulation Stephanie Coleman MD Work Phone: [facility] 08-03-2010 influenza virus vaccine, unspecified formulation Stephanie Coleman MD Work Phone: [facility] 07-03-2009 influenza virus vaccine, unspecified formulation Stephanie Coleman MD Work Phone: [facility] Work Phone: 02-03-2009 tetanus toxoid, redu rubia diphtheria toxoid, and acellular pertussis vaccine, adsorbed Stephanie Coleman MD Work Phone: [facility] Work Phone: 07-25-2008 influenza virus vaccine, unspecified formulation Stephanie Coleman MD Work Phone: [facility] Payers Date Payer Category Payer Private Health Insurance [facility] AAR SUPPLEMENT [id number] 2022-Present [phone] [address] [place] [address] Indemnity [id number] 2022 Unknown [id number] 2017 Medicare MEDICARE MEDICAR E A AND B [id number] 2017-Present [phone] [place] [address] Medicare [id number] 2017 Medicare [id number] Social History Date Type Detail Facility Start: 07-21-2012 Tobacco smoking stat [facility] Never smoked tobacco [facility] Start: 07-21-2012 Tobacco use and exposure Smoke less tobacco non-user [facility] Start: 05-05-2022 End: 04-04-2023 Alcohol intake Current drinker of alcohol (finding) [facility] Start: 05-05-2022 End: 04-04-2023 Alcohol intake [facility] Start: 11-17-2020 End: 11-11-2022 History SDOH Alcohol Frequency 1 [facility] Start: 11-17-2020 End: 11-11-2022 History SDOH Social Connections Phone 2 [facility] Start: 11-17-2020 End: 11-11-2022 History SDOH Social Connections Muslim 3 [facility] Start: 11-17-2020 History SDOH Physica l Activity DPW 6 [facility] Start: 11-17-2020 End: 08-06-2022 History SDOH Physical Activity MPS 4 [facility] Start: 11-17-2020 End: 11-11-2022 History SDOH Financial 5 [facility] Start: 10-27-2019 Education 18 [facility] Start: 01-20-2009 Alcohol Comment rare [facility] Start: 1950 Sex Assigned At Female C [facility] Start: 08-03-2022 End: 08-13-2022 Exposure to SARS-CoV-2 (event) Not sure [facility] Start: 11-11-2022 End: 04-04-2023 Social connection and isolation panel [facility] Do you belong to any clubs or organizations such as jain groups, unions, fraternal or athletic groups, or school groups? Yes [facility] Are you now , , , , never or living with a partner? [facility] How often to you hav e a drink containing alcohol? Monthly or less [facility] How many standard dr inks containing alcohol do you have on a typical day? 1 or 2 [facility] How often do you hav e 6 or more drinks on 1 occasion? Never [facility] How hard is it for y ou to pay for the very basics like food, housing, medical care, and heating Not hard at all [facility] Do you feel stress - tense, restless, nervous, or anxious, or unable to sleep at night because your mind is troubled all the time - these days [OSQ] Only a little [facility] (I/We) worried wheth er (my/our) food would run out before (I/we) got money to buy more. Never true [facility] In the past 12 month s, was there a time when you were not able to pay the mortgage or rent on time? No [facility] Start: 10-23-2019 Gender identity Identifies as female gender (finding) [facility] Start: 10-23-2019 Sexual orientation Heterosexual (fin ding) [facility] Clinical Notes 05-10-2007 to 09-27-2023 Stephanie Coleman MD - 04/04/2023 3:19 PM EDTTelephone Encounter - Cyndi Bloom RN - 11/14/2022 7:57 AM ESTPatient Asa Hayes APRN.CELIA - 11/12/2022 8:20 AM EST Note Date & Type Note Facility 09-27-2023 Note HNO ID: [id number] Author: CRISTAL DORAN MD Service: ? Author Type: Physician Type: Progress Notes Filed: 09/27/2023 09:55 Note Text: Socorro is a 73 year old who presents for an annual gynecologic exam without complaints. Postmenopausal: yes HRT use: No. 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 History Comments: Sexual Activity: Yes; Male; VASECTOMY Contraception: Surgical PAST MEDICAL HISTORY Diagnosis Date Allergic rhinitis Diverticulitis of colon (without mention of hemorrhage)(562.11) 01/27/2007 Minor perforation, 01/14/07 [facility] Hemorrhage of gastrointestinal tract, unspecified INTERNAL AND EXTERNAL Other constipation Unspecified essential hypertension Vitamin D deficiency PAST SURGICAL HISTORY Procedure Laterality Date APPENDECTOMY COLONOSCOPY FLX DX W/COLLJ SPEC WHEN PFRMD 11-27-14 COLONOSCOPY W/BIOPSY SINGLE/MULTIPLE 05-14-10 LAPAROSCOPY COLECTOMY PARTIAL W/ANASTOMOSIS 05-15-10 LEFT LAPS MOBLJ SPLENIC FLXR PFRMD W/PRTL COLECTOMY 05-15-10 MYOMECTOMY 1-4 MYOMAS 250 GM/< VAGINAL APPR PAST SURGICAL HISTORY OF growth removed from ankle--removed when 18 months old REM LESION NEC,HND,SCAL 0.6-1.0CM 12/04/14 Exc. thrombosed varix dorsum right foot REM LESION TRUNK,ARM, LEG <0.5 CM 01/26/07 Exc. left triceps arm lesion STEREOTACTIC CORE BIOPSY 06/09/06 RIGHT TONSILLECTOMY AND ADENOIDECTOMY FAMILY HISTORY Problem Relation Age of Onset Diabetes Mother Heart Mother CHF Emphysema Mother Cancer Mother BCC AND SCC Hypertension Mother Lipids Mother Hypertension Brother Heart Maternal Grandfather other (brain tumor [Other]) Other father SOCIAL HISTORY Social History Tobacco Use Smoking status: Never Smokeless tobacco: Never Vaping Use Vaping Use: Never used Substance Use Topics Alcohol use: Yes Alcohol/week: 1.0 standard drink of alcohol Types: 1 Glasses of Wine (5oz) per week Comment: rare Drug use: No REVIEW OF SYSTEMS Abdomen: No abdominal pain, nausea, vomiting, diarrhea, or constipation. No bloating, early satiety, indigestion, or increased flatulence. Bladder: No dysuria, gross hematuria, urinary frequency, some urgency Breast: No breast lumps, nipple d/c, overlying skin changes, redness or skin retraction Allergies and current medication updated:Yes EXAM: BP 148/88 Ht 5' 5.25 (1.66m) Wt 193 lb (87.5kg) BMI 31.88 kg/(m2). BREAST: soft, non-tender, symmetric, no dominant mass, normal nipple-areolar complex, no lymphadenopathy, and no nipple discharge CHEST: Normal inspiratory effort ABDOMEN: soft, non-tender, and no masses PELVIC: external genitalia normal, left labium w/ 2 sm all calcified inclusion cysts, normal Bartholin's glands, urethra, Stratford's glands, no vulvar lesions, no cervical lesions, good vaginal support, physiologic discharge present, normal appearing perineal body and perianal region BIMANUAL: uterus normal size, shape and consistency, no adnexal masses, and non-tender RECTOVAGINAL: deferred. ASSESSMENT/PLAN: 1) Health maintenance: Pap/HPV screening no longer needed Mammogram ordered other health screens per PCP 2) Follow up one year or sooner as needed Cristal Doran MD [facility] 09-20-2023 Note HNO ID: [id number] Author: Amy Tate LPN Service: ? Author Type: LICENSED NURSE Type: Progress Notes Filed: 09/20/2023 11:07 AM Note Text: Patient office visit to have Covid vaccine administered. Patient well tolerated. Amy Tate LPN [facility] 04-04-2023 Note HNO ID: [id number] Author: Stephanie Coleman MD Service: ? Author Type: Physician Type: Progress Notes Filed: 05/09/2023 12:15 AM Note Text: This note was created using NoteWriter. Subjective Ney Betts is a 72 year old female. Patient presents with: Follow Up: Labs prior SUBJECTIVE: Ney Betts is a 72 year old year old lady here today for follow up appointment for review of medical conditions. BP at home had been 130 to 140s over 80 to 88 Went off [employer] Working on losing weight again. PAST MEDICAL HISTORY Diagnosis Date Allergic rhinitis Diverticulitis of colon (without mention of hemorrhage)(562.11) 01/27/2007 Minor perforation, 01/14/07 [facility] Hemorrhage of gastrointestinal tract, unspecified INTERNAL AND EXTERNAL Other constipation Unspecified essential hypertension Vitamin D deficiency Current Outpatient Medications Medication Sig triamterene-hydroCHLOROthiazide (DYAZIDE) 37.5-25 mg per capsule Take 1 capsule by mouth once daily. ibuprofen (MOTRIN) 200 mg tablet Take 3 tablets by mouth every 6 hours as needed for pain. magnesium oxide 400 mg magnesium tab Take 400 mg by mouth once daily. (Patient taking differently: Take 400 mg by mouth once daily. Every other day) Cholecalciferol, Vitamin D3, 5,000 unit cap Take 1 capsule by mouth once daily. omega-3 fatty acids 1,000 mg cap 720mg daily THERAPEUTIC MULTIVITAMIN TAB Take one(1) tablet daily. No current facility-administered medications for this visit. Review of Systems Objective BP 142/88 Pulse 78 Temp 36.6 ?C (97.8 ?F) Resp 18 Wt 82.6 kg (182 lb) SpO2 97% BMI 30.29 kg/m? Last 5 Encounter Wt Readings: Date: Wt: 04/04/2023 82.6 kg (182 lb) 09/07/2022 81.2 kg (179 lb) 08/13/2022 78 kg (172 lb) 12/16/2021 75.8 kg (167 lb) 07/23/2021 74.8 kg (165 lb) No waist measurement recorded Estimated body mass index is 30.29 kg/m? as calculated from the following: Height as of 09/07/22: 165.1 cm (5' 5 ). Weight as of this encounter: 82.6 kg (182 lb). Last 5 Encounter BP Readings: Date: BP: 04/04/2023 142/88 09/07/2022 148/82 08/13/2022 138/84 12/16/2021 122/78 07/23/2021 136/84 Physical Exam Constitutional: Appearance: Normal appearance. HENT: Head: Normocephalic. Eyes: Conjunctiva/sclera: Conjunctivae normal. Cardiovascular: Rate and Rhythm: Normal rate and regular rhythm. Heart sounds: Normal heart sounds. Pulmonary: Effort: Pulmonary effort is normal. Breath sounds: Normal breath sounds. Skin: General: Skin is warm and dry. Neurological: General: No focal deficit present. Mental Status: She is alert and oriented to person, place, and time. Psychiatric: Mood and Affect: Mood normal. Behavior: Behavior normal. Thought Content: Thought content normal. Judgment: Judgment normal. Component Latest Ref Rng AND Units 12/16/2021 08/03/2022 03/28/2023 Protein, Total 6.3 - 8.0 g/dL 7.2 Albumin 3.9 - 4.9 g/dL 4.4 Calcium 8.5 - 10.2 mg/dL 9.0 9.6 Bilirubin, Total 0.2 - 1.3 mg/dL 0.5 Alkaline Phosphatase 34 - 123 U/L 91 AST 13 - 35 U/L 19 ALT 7 - 38 U/L 16 Glucose 74 - 99 mg/dL 92 96 BUN 7 - 21 mg/dL 15 18 Creatinine 0.58 - 0.96 mg/dL 0.82 0.85 Sodium 136 - 144 mmol/L 139 138 Potassium 3.7 - 5.1 mmol/L 4.0 4.2 Chloride 97 - 105 mmol/L 100 99 CO2 22 - 30 mmol/L 27 26 Anion Gap 9 - 18 mmol/L 12 13 eGFR >=60 mL/min/1.73mA? 77 74 WBC 3.70 - 11.00 k/uL 5.81 6.13 RBC 3.90 - 5.20 m/uL 5.39 (H) 5.33 (H) Hemoglobin 11.5 - 15.5 g/dL 15.7 (H) 15.4 Hematocrit 36.0 - 46.0 % 48.3 (H) 48.1 (H) MCV 80.0 - 100.0 fL 89.6 90.2 MCH 26.0 - 34.0 pg 29.1 28.9 MCHC 30.5 - 36.0 g/dL 32.5 32.0 RDW-CV 11.5 - 15.0 % 12.8 13.1 Platelet Count 150 - 400 k/uL 276 278 MPV 9.0 - 12.7 fL 10.5 11.2 Absolute nRBC <0.01 k/uL <0.01 <0.01 Cholesterol, Total <200 mg/dL 237 (H) 249 (H) Triglyceride <150 mg/dL 96 80 HDL Cholesterol >39 mg/dL 67 70 Non HDL Cholesterol <130 mg/dL 170 (H) 179 (H) Fasting Time hrs 12 12 VLDL Cholesterol <30 mg/dL 19 16 TC:HDL Ratio <5.10 3.54 3.56 LDL Cholesterol <100 mg/dL 151 (H) 163 (H) LDL:HDL Ratio <2.54 2.25 2.33 Hemoglobin A1C 4.3 - 5.6 % 5.6 Estimated Average Glucose mg/dL 114 TSH 0.270 - 4.200 mIU/L 2.120 Free T4 0.9 - 1.7 ng/dL 1.3 Vitamin D 25 Hydroxy 31.0 - 80.0 ng/mL 41.6 55.9 The 10-year ASCVD risk score (Gilberto BARAKAT, et al., 2019) is: 11.7% Values used to calculate the score: Age: 72 years Sex: Female Is Non- : No Diabetic: No Tobacco smoker: No Systolic Blood Pressure: 142 mmHg Is BP treated: No HDL Cholesterol: 70 mg/dL Total Cholesterol: 249 mg/dL Assessment and Plan Encounter Diagnosis ICD-10-CM 1. Essential hypertension I10 COMP METABOLIC PANEL CBC TSH BLD T4 FREE/FREE THYROX T3 FREE BLD 2. Dyslipidemia E78.5 LIPID PANEL BASIC TSH BLD T4 FREE/FREE THYROX T3 FREE BLD 3. IFG (impaired fasting glucose) R73.01 COMP METABOLIC GAINES (more content not included)... [facility] 04-04-2023 History of Present illness Narrative Images from the original note were not included. This note was created using [employer]. Subjective Ney Betts is a 72 year old female. Patient presents with: Follow Up: Labs prior SUBJECTIVE: Ney Betts is a 72 year old year old lady here today for follow up appointment for review of medical conditions. BP at home had been 130 to 140s over 80 to 88 Went off [employer] Working on losing weight again. PAST MEDICAL HISTORY Diagnosis Date Allergic rhinitis Diverticulitis of colon (without mention of hemorrhage)(562.11) 01/27/2007 Minor perforation, 01/14/07 [facility] Hemorrhage of gastrointestinal tract, unspecified INTERNAL AND EXTERNAL Other constipation Unspecified essential hypertension Vitamin D deficiency Current Outpatient Medications Medication Sig triamterene-hydroCHLOROthiazide (DYAZIDE) 37.5-25 mg per capsule Take 1 capsule by mouth once daily. ibuprofen (MOTRIN) 200 mg tablet Take 3 tablets by mouth every 6 hours as needed for pain. magnesium oxide 400 mg magnesium tab Take 400 mg by mouth once daily. (Patient taking differently: Take 400 mg by mouth once daily. Every other day) Cholecalciferol, Vitamin D3, 5,000 unit cap Take 1 capsule by mouth once daily. omega-3 fatty acids 1,000 mg cap 720mg daily THERAPEUTIC MULTIVITAMIN TAB Take one(1) tablet daily. No current facility-administered medications for this visit. Review of Systems Objective BP 142/88 Pulse 78 Temp 36.6 C (97.8 F) Resp 18 Wt 82.6 kg (182 lb) SpO2 97% BMI 30.29 kg/m Last 5 Encounter Wt Readings: Date: Wt: 04/04/2023 82.6 kg (182 lb) 09/07/2022 81.2 kg (179 lb) 08/13/2022 78 kg (172 lb) 12/16/2021 75.8 kg (167 lb) 07/23/2021 74.8 kg (165 lb) No waist measurement recorded Estimated body mass index is 30.29 kg/m as calculated from the following: Height as of 09/07/22: 165.1 cm (5' 5 ). Weight as of this encounter: 82.6 kg (182 lb). Last 5 Encounter BP Readings: Date: BP: 04/04/2023 142/88 09/07/2022 148/82 08/13/2022 138/84 12/16/2021 122/78 07/23/2021 136/84 Physical Exam Constitutional: Appearance: Normal appearance. HENT: Head: Normocephalic. Eyes: Conjunctiva/sclera: Conjunctivae normal. Cardiovascular: Rate and Rhythm: Normal rate and regular rhythm. Heart sounds: Normal heart sounds. Pulmonary: Effort: Pulmonary effort is normal. Breath sounds: Normal breath sounds. Skin: General: Skin is warm and dry. Neurological: General: No focal deficit present. Mental Status: She is alert and oriented to person, place, and time. Psychiatric: Mood and Affect: Mood normal. Behavior: Behavior normal. Thought Content: Thought content normal. Judgment: Judgment normal. Component Latest Ref Rng & Units 12/16/2021 08/03/2022 03/28/2023 Protein, Total 6.3 - 8.0 g/dL 7.2 Albumin 3.9 - 4.9 g/dL 4.4 Calcium 8.5 - 10.2 mg/dL 9.0 9.6 Bilirubin, Total 0.2 - 1.3 mg/dL 0.5 Alkaline Phosphatase 34 - 123 U/L 91 AST 13 - 35 U/L 19 ALT 7 - 38 U/L 16 Glucose 74 - 99 mg/dL 92 96 BUN 7 - 21 mg/dL 15 18 Creatinine 0.58 - 0.96 mg/dL 0.82 0.85 Sodium 136 - 144 mmol/L 139 138 Potassium 3.7 - 5.1 mmol/L 4.0 4.2 Chloride 97 - 105 mmol/L 100 99 CO2 22 - 30 mmol/L 27 26 Anion Gap 9 - 18 mmol/L 12 13 eGFR >=60 mL/min/1.73m 77 74 WBC 3.70 - 11.00 k/uL 5.81 6.13 RBC 3.90 - 5.20 m/uL 5.39 (H) 5.33 (H) Hemoglobin 11.5 - 15.5 g/dL 15.7 (H) 15.4 Hematocrit 36.0 - 46.0 % 48.3 (H) 48.1 (H) MCV 80.0 - 100.0 fL 89.6 90.2 MCH 26.0 - 34.0 pg 29.1 28.9 MCHC 30.5 - 36.0 g/dL 32.5 32.0 RDW-CV 11.5 - 15.0 % 12.8 13.1 Platelet Count 150 - 400 k/uL 276 278 MPV 9.0 - 12.7 fL 10.5 11.2 Absolute nRBC <0.01 k/uL <0.01 <0.01 Cholesterol, Total <200 mg/dL 237 (H) 249 (H) Triglyceride <150 mg/dL 96 80 HDL Cholesterol >39 mg/dL 67 70 Non HDL Cholesterol <130 mg/dL 170 (H) 179 (H) Fasting Time hrs 12 12 VLDL Cholesterol <30 mg/dL 19 16 TC:HDL Ratio <5.10 3.54 3.56 LDL Cholesterol <100 mg/dL 151 (H) 163 (H) LDL:HDL Ratio <2.54 2.25 2.33 Hemoglobin A1C 4.3 - 5.6 % 5.6 Estimated Average Glucose mg/dL 114 TSH 0.270 - 4.200 mIU/L 2.120 Free T4 0.9 - 1.7 ng/dL 1.3 Vitamin D 25 Hydroxy 31.0 - 80.0 ng/mL 41.6 55.9 The 10-year ASCVD risk score (Gilberto BARAKAT, et al., 2019) is: 11.7% Values used to calculate the score: Age: 72 years Sex: Female Is Non- : No Diabetic: No Tobacco smoker: No Systolic Blood Pressure: 142 mmHg Is BP treated: No HDL Cholesterol: 70 mg/dL Total Cholesterol: 249 mg/dL Assessment and Plan Encounter Diagnosis ICD-10-CM 1. Essential hypertension I10 COMP METABOLIC PANEL CBC TSH BLD T4 FREE/FREE THYROX T3 FREE BLD 2. Dyslipidemia E78.5 LIPID PANEL BASIC TSH BLD T4 FREE/FREE THYROX T3 FREE BLD 3. IFG (impaired fasting glucose) R73.01 COMP METABOLIC PANEL HGB A1C 4. Vitamin D deficiency E55.9 COMP METABOLIC PANEL VITAMIN D 25 HYDROXY 5. Breast cancer screening by mammogram Z12.31 DEONTE SCREENING W LIZA Above issues addressed with patient. Patient involved in shared decision making for management of medical issues. History and medications reviewed. Epic updated as needed Refills and/or prescriptions taken care of and meds adjusted as indicated after reviewed history, exam and labs. Health Maintenance reviewed. Updated record and/or ordered tests as recorded. Encouraged on efforts at healthy diet and regular exercise and adequate sleep. Needs to keep working on diet and exercise with lifestyle changes for effective weight loss as well as prevention of DM, and control of BP and lipids. Adjust meds as indicated. Stephanie Coleman MD documented in this encounter [facility] 11-14-2022 Miscellaneous Notes Reason for call: Paxlovid side effects (muscle pain, metallic taste) Outcome: Paged provider regional telecommunications specialist Dr. Tomas who advised encourage patient to finish prescription and utilize analgesic for pain relief. Patient notified and verbalized understanding. Patient states she will finish the medication and use non pharmaceutical methods of muscle pain relief such as heating pad and muscle massager. Reason for Disposition Nursing judgment or information in reference Answer Assessment - Initial Assessment Questions 1. REASON FOR CALL: Patient concerned about side effects from paxlovid. Patient reporting muscle pain when she takes the medication 2. ONSET: Body aches started when 2 days ago when patient started Paxlovid 3. SEVERITY: Patient states she is not sure if covid or the side effects are worse but also states pain is nothing I cant tough out 4. FEVER: 5. OTHER SYMPTOMS: All other covid symptoms are improving. 6. TREATMENTS AND RESPONSE: Patient states she was not sure if she should take tylenol because she is already taking other medication along with paxlovid 7. : N/A Protocols used: No Guideline [id number] documented in this encounter [facility] 11-12-2022 Note HNO ID: [id number] Author: Therese Hayes APRN.COPPER PLATER Service: ? Author Type: Nurse Specialist Type: Progress Notes Filed: 11/12/2022 8:40 AM Note Text: Telemedicine Evaluation for COVID-19 Infection MyChart video visit was used for evaluation of this patient. Location of patient: [facility] Ney Betts is a 72 year old female who presents with 2 days of symptoms that are improving. Symptoms include: Fever (?100.4F): No or Chills: Yes Cough: Yes, not productive Shortness of breath: No or Difficulty breathing: No Fatigue: Yes Muscle aches: Yes Headache: Yes New loss of smell or taste: No Sore throat: Yes, mild scratchy previously, not now Nasal congestion: Yes or Rhinorrhea: Yes Nausea: No or Vomiting: No Diarrhea: No Decreased appetitie OTC meds/remedies that patient has tried: OTC cold medicine. High risk category assessment Age > 60 years old Hypertension Exposures: Sick contacts? No Family or close contacts with confirmed/probable COVID-19 in last 14 days? No She reports that she has never smoked. She has never used smokeless tobacco. OBJECTIVE VIDEO EXAM (if available) No home VS GENERAL: Ill-appearing, but non-toxic HEENT: no conjunctival injection, pupils equal, moist mucous membranes, sinuses non-tender to self-palpation, and palpable cervical adenopathy PULMONARY: breathing comfortably on room air , no coughing noted, and no wheezing noted Creatinine Date Value Ref Range Status 08/03/2022 0.82 0.58 - 0.96 mg/dL Final 11/05/2020 0.89 0.6 - 1.3 MG/DL Final 04/28/2020 0.9 0.6 - 1.3 MG/DL Final 04/18/2019 1.0 0.5 - 1.1 MG/DL Final ASSESSMENT/PLAN No diagnosis found. - Discussed symptom monitoring and supportive care - Red flag symptoms requiring follow up discussed Nirmatrelvir/Ritonavir (Paxlovid) Eligibility and Patient Discussion [facility] Formulary Restriction Criteria: Adult outpatients 18 years and older with ALL of the following: [x] Patient has positive SARS-COV-2 viral test (PCR or antigen test) during current illness [x] Patient has symptoms for 5 days or less [x] Not requiring hospitalization at any time for management of COVID-19 [x] Not requiring supplemental oxygen or a change in baseline supplemental oxygen [x] Not utilized for pre-exposure or post-exposure prophylaxis for prevention of COVID-19 [x] Patient does not have severe renal impairment (eGFR < 30 mL/min) or severe hepatic impairment (Child-Cain Class C) [x] Meeting at least one of the criteria for high risk of progression to severe COVID-19: [x] Age over 65 years [] Cancer [] Chronic kidney disease [] Chronic liver disease [] Chronic lung diseases, including cystic fibrosis [] Dementia or other neurological conditions [] Diabetes (type 1 or type 2) [] Disabilities, including Down syndrome and neurodevelopmental disorders [] Heart conditions [] HIV infection [] Immunocompromised state [] Mental health conditions [] Medical related technological dependence (tracheostomy, gastrostomy, or positive pressure ventilation (not related to COVID) [] Overweight and obesity (BMI greater or equal to 25 for adults) [] Physical inactivity [] [] Sickle cell disease or thalassemia [] Smoking, current or former [] Solid organ or blood stem cell transplant [] Stroke or cerebrovascular disease [] Substance use disorders [] Tuberculosis [] People from racial and ethnic minority groups Criteria above are met: Yes Date of Positive Test: November 11, 2022 Date of Symptom Onset: November 10, 2022 Patient received COVID vaccine: Yes Drug-Drug interactions reviewed: Yes. Drug interactions were identified and the following actions were taken -- no interactions identified. I have discussed the use of the investigational therapeutic, nirmatrelvir/ritonavir, for the treatment of mild to moderate COVID-19 and its use under Emergency Use Authorization with the patient. The patient was informed that nirmatrelvir/ritonavir is not an FDA approved drug and that it is authorized for use under this Emergency Use Authorization. The patient was also informed of the significant known benefits and potential risks of nirmatrelvir/ritonavir, and the extent to which such potential risks and benefits are unknown. The patient was informed that there is mandatory reporting of all medication errors and serious adverse events potentially related to nirmatrelvir/ritonavir treatment within 7 calendar days from the onset of the event and that events up to 28 days after completion of therapy need to be reported. The discussion included alternatives to receiving nirmatrelvir/ritonavir, including clinical trials, and potential the risks and benefits of those alternatives. The patient was provided electronically with the Fact Sheet for Patients, Parents and Caregivers . The patient was also instructed that in addition to the treatment wit (more content not included)... [facility] 11-12-2022 Instructions Therese Hayes APRN.COPPER PLATER - 11/12/2022 8:36 AM EST FACT SHEET FOR PATIENTS, PARENTS, AND CAREGIVERS EMERGENCY USE AUTHORIZATION (EUA) OF PAXLOVID FOR CORONAVIRUS DISEASE 2019 (COVID-19) You are being given this Fact Sheet because your healthcare provider believes it is necessary to provide you with PAXLOVID for the treatment of gmro-wn-clqfkrhh coronavirus disease (COVID-19) caused by the SARS-CoV-2 virus. This Fact Sheet contains information to help you understand the risks and benefits of taking the PAXLOVID you have received or may receive. The U.S. Food and Drug Administration (FDA) has issued an Emergency Use Authorization (EUA) to make PAXLOVID available during the COVID-19 pandemic (for more details about an EUA please see What is an Emergency Use Authorization? at the end of this document). PAXLOVID is not an FDA-approved medicine in the [place]. Read this Fact Sheet for information about PAXLOVID. Talk to your healthcare provider about your options or if you have any questions. It is your choice to take PAXLOVID. What is COVID-19? COVID-19 is caused by a virus called a coronavirus. You can get COVID-19 through close contact with another person who has the virus. COVID-19 illnesses have ranged from very aear-yt-zsoaiq, including illness resulting in . While information so far suggests that most COVID-19 illness is mild, serious illness can happen and may cause some of your other medical conditions to become worse. Older people and people of all ages with severe, long lasting (chronic) medical conditions like heart disease, lung disease, and diabetes, for example seem to be at higher risk of being hospitalized for COVID-19. What is PAXLOVID? PAXLOVID is an investigational medicine used to treat cozj-tf-ycktieiv COVID-19 in adults and children [12 years of age and older weighing at least 88 pounds (40 kg)] with positive results of direct SARS-CoV-2 viral testing, and who are at high risk for progression to severe COVID-19, including hospitalization or . PAXLOVID is investigational because it is still being studied. There is limited information about the safety and effectiveness of using PAXLOVID to treat people with jdec-jr-cxsvngdc COVID-19. The FDA has authorized the emergency use of PAXLOVID for the treatment of kzeb-si-hpgqvbdr COVID-19 in adults and children [12 years of age and older weighing at least 88 pounds (40 kg)] with a positive test for the virus that causes COVID-19, and who are at high risk for progression to severe COVID-19, including hospitalization or , under an EUA. 1 Revised: 04 December 2021 What should I tell my healthcare provider before I take PAXLOVID? Tell your healthcare provider if you: Have any allergies Have liver or kidney disease Are or plan to become Are a child Have any serious illnesses Tell your healthcare provider about all the medicines you take, including prescription and zetf-mdw-jadazgi medicines, vitamins, and herbal supplements. Some medicines may interact with PAXLOVID and may cause serious side effects. Keep a list of your medicines to show your healthcare provider and pharmacist when you get a new medicine. You can ask your healthcare provider or pharmacist for a list of medicines that interact with PAXLOVID. Do not start taking a new medicine without telling your healthcare provider. Your healthcare provider can tell you if it is safe to take PAXLOVID with other medicines. Tell your healthcare provider if you are taking combined hormonal contraceptive. PAXLOVID may affect how your control pills work. Females who are able to become should use another effective alternative form of contraception or an additional barrier method of contraception. Talk to your healthcare provider if you have any questions about contraceptive methods that might be right for you. How do I take PAXLOVID? PAXLOVID consists of 2 medicines: nirmatrelvir and ritonavir. Take 2 pink tablets of nirmatrelvir with 1 white tablet of ritonavir by mouth 2 times each day (in the morning and in the evening) for 5 days. For each dose, take all 3 tablets at the same time. If you have kidney disease, talk to your healthcare provider. You may need a different dose. Swallow the tablets whole. Do not chew, break, or crush the tablets. Take PAXLOVID with or without food. Do not stop taking PAXLOVID without talking to your healthcare provider, even if you feel better. If you miss a dose of PAXLOVID within 8 hours of the time it is usually taken, take it as soon as you remember. If you miss a dose by more than 8 hours, skip the missed dose and take the next dose at your regular time. Do not take 2 doses of PAXLOVID at the same time. If you take too much PAXLOVID, call your healthcare provider or go to the nearest hospital emergency room right away. If you are taking a ritonavir-or cobicistat-containing medicine to treat hepatitis C or Human Immunodeficiency Virus (HIV), you should continue to take your medicine as prescribed by your healthcare provider. Talk to your healthcare provider if you do not feel better or if you feel worse after 5 days. Who should generally not take PAXLOVID? Do not take PAXLOVID if: You are allergic to nirmatrelvir, ritonavir, or any of the ingredients in PAXLOVID You are taking any of the following medicines: Alfuzosin Pethidine, propoxyphene Ranolazine Amiodarone, dronedarone, flecainide, propafenone, quinidine Colchicine Lurasidone, pimozide, clozapine Dihydroergotamine, ergotamine, methylergonovine Lovastatin, simvastatin Sildenafil (Revatio ) for pulmonary arterial hypertension (PAH) Triazolam, oral midazolam Apalutamide Carbamazepine, phenobarbital, phenytoin Rifampin Chauncey s Wort (hypericum perforatum) Taking PAXLOVID with these medicines may cause serious or life-threatening side effects or affect how PAXLOVID works. These are not the only medicines that may cause serious side effects if taken with PAXLOVID. PAXLOVID may increase or decrease the levels of multiple other medicines. It is very important to tell your healthcare provider about all of the medicines you are taking because additional laboratory tests or changes in the dose of your other medicines may be necessary while you are taking PAXLOVID. Your healthcare provider may also tell you about specific symptoms to watch out for that may indicate that you need to stop or decrease the dose of some of your other medicines. What are the important possible side effects of PAXLOVID? Possible side effects of PAXLOVID are: Allergic Reactions. Allergic reactions can happen in people taking PAXLOVID, even after only 1 dose. Stop taking PAXLOVID and call your healthcare provider right away if you get any of the following symptoms of an allergic reaction: hives trouble swallowing or breathing swelling of the mouth, lips, or face throat tightness hoarseness skin rash Liver Problems. Tell your healthcare provider right away if you have any of these signs and symptoms of liver problems: loss of appetite, yellowing of your skin and the whites of eyes (jaundice), dark-colored urine, pale colored stools and itchy skin, stomach area (abdominal) pain. Resistance to HIV Medicines. If you have untreated HIV infection, PAXLOVID may lead to some HIV medicines not working as well in the future. Other possible side effects include: altered sense of taste diarrhea high blood pressure muscle aches These are not all the possible side effects of PAXLOVID. Not many people have taken PAXLOVID. Serious and unexpected side effects may happen. PAXLOVID is still being studied, so it is possible that all of the risks are not known at this time. What other treatment choices are there? Veklury (remdesivir) is FDA-approved for the treatment of pmhp-hh-sbvzvzuk COVID-19 in certain adults and children. Talk with your doctor to see if Veklury is appropriate for you. Like PAXLOVID, FDA may also allow for the emergency use of other medicines to treat people with COVID-19. Go to https://www.fda.gov/emergency-pre paredness-andresponse/mcm-legal-r yjhmnjikp-isn-gqgaka-framework/em aoselnj-fnn-mysfhmapfnufp for information on the emergency use of other medicines that are authorized by FDA to treat people with COVID-19. Your healthcare provider may talk with you about clinical trials for which you may be eligible. It is your choice to be treated or not to be treated with PAXLOVID. Should you decide not to receive it or for your child not to receive it, it will not change your standard medical care. What if I am or ? There is snow removal/plowing treating women or mothers with PAXLOVID. For a mother and unborn baby, the benefit of taking PAXLOVID may be greater than the risk from the treatment. If you are , discuss your options and specific situation with your healthcare provider. It is recommended that you use effective barrier contraception or do not have sexual activity while taking PAXLOVID. If you are , discuss your options and specific situation with your healthcare provider. How do I report side effects with PAXLOVID? Contact your healthcare provider if you have any side effects that bother you or do not go away. Report side effects to [employer] Application at www.fda.gov/medUrban Cargotch or call 2-208-PRN1073 or you can report side effects to [employer] at the contact information provided below. Website Fax number Telephone number [place] [employer] How should I store PAXLOVID? Store PAXLOVID tablets at room temperature, between 68?F to 77?F (20?C to 25?C). How can I learn more about COVID-19? Ask your healthcare provider. Visit https://www.cdc.gov/COVID19. Contact your local or state public health department. What is an Emergency Use Authorization (EUA)? The [place] FDA has made PAXLOVID available under an emergency access mechanism called an Emergency Use Authorization (EUA). The EUA is supported by a Child Care Director of Health and Human Service (HHS) declaration that circumstances exist to justify the emergency use of drugs and biological products during the COVID-19 pandemic. PAXLOVID for the treatment of biwv-qx-oeptlese COVID-19 in adults and children [12 years of age and older weighing at least 88 pounds (40 kg)] with positive results of direct SARS-CoV-2 viral testing, and who are at high risk for progression to severe COVID-19, including hospitalization or , has not undergone the same type of review as an FDA-approved product. In issuing an EUA under the COVID-19 public health emergency, the FDA has determined, among other things, that based on the total amount of scientific evidence available including data from adequate and well-controlled clinical trials, if available, it is reasonable to believe that the product may be effective for diagnosing, treating, or preventing COVID-19, or a serious or life-threatening disease or condition caused by COVID-19; that the known and potential benefits of the product, when used to diagnose, treat, or prevent such disease or condition, outweigh the known and potential risks of such product; and that there are no adequate, approved, and available alternatives. All of these criteria must be met to allow for the product to be used in the treatment of patients during the COVID-19 pandemic. The EUA for PAXLOVID is in effect for the duration of the COVID-19 declaration justifying emergency use of this product, unless terminated or revoked (after which the products may no longer be used under the EUA). Additional Information For general questions, visit the website or call the telephone number provided below. Website Telephone number [employer] Route ([phone]-XPHL) You can also go to www.Gnip or call for more information. Pfizer Distributed by [email or web address] [place] [address] [id number] Revised: 04 December 2021 documented in this encounter [facility] 11-12-2022 History of Present illness Narrative Telemedicine Evaluation for COVID-19 Infection MyChart video visit was used for evaluation of this patient. Location of patient: [facility] Ney Betts is a 72 year old female who presents with 2 days of symptoms that are improving. Symptoms include: Fever (?100.4F): No or Chills: Yes Cough: Yes, not productive Shortness of breath: No or Difficulty breathing: No Fatigue: Yes Muscle aches: Yes Headache: Yes New loss of smell or taste: No Sore throat: Yes, mild scratchy previously, not now Nasal congestion: Yes or Rhinorrhea: Yes Nausea: No or Vomiting: No Diarrhea: No Decreased appetitie OTC meds/remedies that patient has tried: OTC cold medicine. High risk category assessment Age > 60 years old Hypertension Exposures: Sick contacts? No Family or close contacts with confirmed/probable COVID-19 in last 14 days? No She reports that she has never smoked. She has never used smokeless tobacco. OBJECTIVE VIDEO EXAM (if available) No home VS GENERAL: Ill-appearing, but non-toxic HEENT: no conjunctival injection, pupils equal, moist mucous membranes, sinuses non-tender to self-palpation, and palpable cervical adenopathy PULMONARY: breathing comfortably on room air , no coughing noted, and no wheezing noted Creatinine Date Value Ref Range Status 08/03/2022 0.82 0.58 - 0.96 mg/dL Final 11/05/2020 0.89 0.6 - 1.3 MG/DL Final 04/28/2020 0.9 0.6 - 1.3 MG/DL Final 04/18/2019 1.0 0.5 - 1.1 MG/DL Final ASSESSMENT/PLAN No diagnosis found. - Discussed symptom monitoring and supportive care - Red flag symptoms requiring follow up discussed Nirmatrelvir/Ritonavir (Paxlovid) Eligibility and Patient Discussion [facility] Formulary Restriction Criteria: Adult outpatients 18 years and older with ALL of the following: [x] Patient has positive SARS-COV-2 viral test (PCR or antigen test) during current illness [x] Patient has symptoms for 5 days or less [x] Not requiring hospitalization at any time for management of COVID-19 [x] Not requiring supplemental oxygen or a change in baseline supplemental oxygen [x] Not utilized for pre-exposure or post-exposure prophylaxis for prevention of COVID-19 [x] Patient does not have severe renal impairment (eGFR < 30 mL/min) or severe hepatic impairment (Child-Cain Class C) [x] Meeting at least one of the criteria for high risk of progression to severe COVID-19: [x] Age over 65 years [] Cancer [] Chronic kidney disease [] Chronic liver disease [] Chronic lung diseases, including cystic fibrosis [] Dementia or other neurological conditions [] Diabetes (type 1 or type 2) [] Disabilities, including Down syndrome and neurodevelopmental disorders [] Heart conditions [] HIV infection [] Immunocompromised state [] Mental health conditions [] Medical related technological dependence (tracheostomy, gastrostomy, or positive pressure ventilation (not related to COVID) [] Overweight and obesity (BMI greater or equal to 25 for adults) [] Physical inactivity [] [] Sickle cell disease or thalassemia [] Smoking, current or former [] Solid organ or blood stem cell transplant [] Stroke or cerebrovascular disease [] Substance use disorders [] Tuberculosis [] People from racial and ethnic minority groups Criteria above are met: Yes Date of Positive Test: November 11, 2022 Date of Symptom Onset: November 10, 2022 Patient received COVID vaccine: Yes Drug-Drug interactions reviewed: Yes. Drug interactions were identified and the following actions were taken -- no interactions identified. I have discussed the use of the investigational therapeutic, nirmatrelvir/ritonavir, for the treatment of mild to moderate COVID-19 and its use under Emergency Use Authorization with the patient. The patient was informed that nirmatrelvir/ritonavir is not an FDA approved drug and that it is authorized for use under this Emergency Use Authorization. The patient was also informed of the significant known benefits and potential risks of nirmatrelvir/ritonavir, and the extent to which such potential risks and benefits are unknown. The patient was informed that there is mandatory reporting of all medication errors and serious adverse events potentially related to nirmatrelvir/ritonavir treatment within 7 calendar days from the onset of the event and that events up to 28 days after completion of therapy need to be reported. The discussion included alternatives to receiving nirmatrelvir/ritonavir, including clinical trials, and potential the risks and benefits of those alternatives. The patient was provided electronically with the Fact Sheet for Patients, Parents and Caregivers . The patient was also instructed that in addition to the treatment with nirmatrelvir/ritonavir, he/she should continue to self-isolate and use infection control measures (e.g., wear mask, isolate, social distance, avoid sharing personal items, clean and disinfect high touch surfaces, and frequent handwashing) according to CDC guidelines. The patient stated understanding and gave verbal consent to proceeding with nirmatrelvir/ritonavir treatment. Therese Hayes APRN.COPPER PLATER November 12, 2022 8:29 AM 20 min in visit This patient encounter involved the screening or treatment of novel coronavirus infection (COVID-19). documented in this encounter [facility] 11-11-2022 Miscellaneous Notes Patient was given providers message and verbalized understanding. Patient is good waiting until tomorrow Noted, OK. If she wanted to try a virtual visit OnDemand this evening she could do that through [email or web address], otherwise ok to wait until tomorrow. Supportive care for now. Pt calls and states the following: COVID 19 positive. COVID -19 DIAGNOSIS: COVID positive home test 11-11-22 COVID-19 EXPOSURE: unknown ONSET: symptoms started yesterday evening 11-10-22 WORST SYMPTOM: head congestion, headache COUGH: slight dry cough FEVER: no RESPIRATORY STATUS: no [id number]: worse HIGH RISK DISEASE: high blood pressure VACCINE: yes OTHER SYMPTOMS: fatigue, decreased appetite, hurts behind her eyes DENIES: loss of smell or taste, neck pain, abdominal, vomiting, diarrhea Pt interested in being treated. Virtual apt scheduled for 11-12-22 This will be her 1st virtual apt. Genia William LPN documented in this encounter [facility] 10-21-2022 Miscellaneous Notes Catalina @ [facility] Mammography calling to request new order for mammogram that includes Tomography. Faxed order from 08/13/22. . Ellen Downing RN documented in this encounter [facility] 09-21-2022 Miscellaneous Notes Order placed, please send to [facility]. Thanks documented in this encounter [facility] 09-07-2022 History of Present illness Narrative Ney Betts is a 72 year old female who presents for problem visit for c/o some lumps on labia that have been here for a few months. Not bleeding, getting better. No pain. No prurutis. No bleeding. Sexually active, no pain. 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 History Comments: Sexual Activity: Yes; Male; VASECTOMY Contraception: Surgical PAST MEDICAL HISTORY Diagnosis Date Allergic rhinitis Diverticulitis of colon (without mention of hemorrhage)(562.11) 01/27/2007 Minor perforation, 01/14/07 [facility] Hemorrhage of gastrointestinal tract, unspecified INTERNAL AND EXTERNAL Other constipation Unspecified essential hypertension Vitamin D deficiency PAST SURGICAL HISTORY Procedure Laterality Date APPENDECTOMY COLONOSCOPY FLX DX W/COLLJ SPEC WHEN PFRMD 11-27-14 COLONOSCOPY W/BIOPSY SINGLE/MULTIPLE 05-14-10 LAPAROSCOPY COLECTOMY PARTIAL W/ANASTOMOSIS 05-15-10 LEFT LAPS MOBLJ SPLENIC FLXR PFRMD W/PRTL COLECTOMY 05-15-10 MYOMECTOMY 1-4 MYOMAS 250 GM/< VAGINAL APPR PAST SURGICAL HISTORY OF growth removed from ankle--removed when 18 months old REM LESION NEC,HND,SCAL 0.6-1.0CM 12/04/14 Exc. thrombosed varix dorsum right foot REM LESION TRUNK,ARM, LEG <0.5 CM 01/26/07 Exc. left triceps arm lesion STEREOTACTIC CORE BIOPSY 06/09/06 RIGHT TONSILLECTOMY & ADENOIDECTOMY <AGE 14 FAMILY HISTORY Problem Relation Age of Onset other (brain tumor [Other]) Other father Diabetes Mother Heart Mother CHF Emphysema Mother None Brother Cancer Mother BCC & SCC Heart Maternal Grandfather Hypertension Mother Lipids Mother Social History Tobacco Use Smoking status: Never Smokeless tobacco: Never Substance Use Topics Alcohol use: Yes Alcohol/week: 2.5 standard drinks Types: 1 Glasses of Wine (5oz) per week Comment: rare Drug use: No Current Outpatient Medications Medication Sig triamterene-hydroCHLOROthiazide 37.5-25 mg per capsule Take 1 capsule by mouth once daily. ibuprofen (MOTRIN) 200 mg tablet Take 3 tablets by mouth every 6 hours as needed for pain. magnesium oxide 400 mg magnesium tab Take 400 mg by mouth once daily. (Patient taking differently: Take 400 mg by mouth once daily. Every other day) Cholecalciferol, Vitamin D3, 5,000 unit cap Take 1 capsule by mouth once daily. omega-3 fatty acids 1,000 mg cap 720mg daily THERAPEUTIC MULTIVITAMIN TAB Take one(1) tablet daily. No current facility-administered medications for this visit. Allergies As of Date: 09/07/2022 Allergen Noted Reaction CHROMIC CAT GUT [OTHER] 05/11/2006 MEZLIN [OTHER] 05/11/2006 Itching MORPHINE 05/11/2006 Itching VICYRL [OTHER] 03/23/2007 Fully Assessed 09/07/2022 REVIEW OF SYSTEMS Abdomen: No bloating, early satiety, indigestion, or increased flatulence. No abdominal pain, nausea, vomiting, diarrhea, or some chronic constipation Bladder: No dysuria, gross hematuria, urinary frequency, urinary urgency, or incontinence. Expanded ROS: N/A Allergies and current medication updated:Yes EXAM: BP 148/82 Ht 5' 5 (1.65m) Wt 179 lb (81.2kg) BMI 29.79 kg/(m^2). GENERAL: pleasant, female in no apparent distress NECK: Supple, full range of motion, no adenopathy, and thyroid normal PELVIC: external genitalia normal, normal Bartholin's glands, urethra, Stratford's glands, no vulvar lesions, no cervical lesions, physiologic discharge present, normal appearing perineal body and perianal region, cystocele, rectocele , flattened atrophic epithelium, left labium majorum has 2 5 mm calcified inclusion cysts BIMANUAL: uterus normal size, shape and consistency, no adnexal masses, and non-tender NEURO: alert and oriented x3,exam grossly non-focal EXTREMITIES: normal ASSESSMENT AND PLAN: No paps needed inclusion cysts- reassured Medical Decision Making: Medical Decision Making Level: 1 - N/A Cristal Doran MD documented in this encounter [facility] 08-13-2022 History of Present illness Narrative Images from the original note were not included. This note was created using [employer]. Subjective Ney Betst is a 72 year old female. Patient presents with: F/U 6 months SUBJECTIVE: Ney Betts is a 72 year old year old lady here today for 6 month follow up appointment for review of medical conditions. Noted lump on labia. Maybe 1 to 2 months ago. Staying same size. No pain No itching. No vaginal drainage. Otherwise doing well. Estrace did not help with urinary incontinence associated with bladder being full and urgency. Now keeps bladder empty and goes as soon as needed. Still exercising and running her 3 miles every other day 3 days a week. Weight up since stopped weight watchers PAST MEDICAL HISTORY Diagnosis Date Allergic rhinitis Diverticulitis of colon (without mention of hemorrhage)(562.11) 01/27/2007 Minor perforation, 01/14/07 [facility] Hemorrhage of gastrointestinal tract, unspecified INTERNAL AND EXTERNAL Other constipation Unspecified essential hypertension Vitamin D deficiency Current Outpatient Medications Medication Sig triamterene-hydroCHLOROthiazide 37.5-25 mg per capsule Take 1 capsule by mouth once daily. ibuprofen (MOTRIN) 200 mg tablet Take 3 tablets by mouth every 6 hours as needed for pain. magnesium oxide 400 mg magnesium tab Take 400 mg by mouth once daily. estradiol (ESTRACE) 0.01 % (0.1 mg/gram) vaginal cream Apply pea-sized amount to perineum and 1 applicator vaginally Mon, Wed, Tue aspirin, enteric coated (ASPIRIN, ENTERIC COATED) 81 mg EC tablet Take 81 mg by mouth once daily. Cholecalciferol, Vitamin D3, 5,000 unit cap Take 1 capsule by mouth once daily. omega-3 fatty acids (FISH OIL CONCENTRATE) 1,000 mg ORAL Cap 720mg daily THERAPEUTIC MULTIVITAMIN TAB Take one(1) tablet daily. No current facility-administered medications for this visit. Review of Systems Objective BP 148/82 Pulse 69 Wt 78 kg (172 lb) SpO2 97% BMI 28.62 kg/m Last 5 Encounter Wt Readings: Date: Wt: 08/13/2022 78 kg (172 lb) 12/16/2021 75.8 kg (167 lb) 07/23/2021 74.8 kg (165 lb) 06/05/2021 73.5 kg (162 lb) 05/05/2020 71.2 kg (157 lb) No waist measurement recorded Estimated body mass index is 28.62 kg/m as calculated from the following: Height as of 04/25/19: 165.1 cm (5' 5 ). Weight as of this encounter: 78 kg (172 lb). Last 5 Encounter BP Readings: Date: BP: 08/13/2022 148/82 12/16/2021 122/78 07/23/2021 136/84 06/05/2021 129/79 11/19/2020 124/82[Repeat BP[ 08/13/22 1123 08/13/22 1212 BP: 148/82 138/84 Pulse: 69 SpO2: 97% Weight: 78 kg (172 lb) Physical Exam Constitutional: Appearance: Normal appearance. HENT: Head: Normocephalic. Eyes: Conjunctiva/sclera: Conjunctivae normal. Cardiovascular: Rate and Rhythm: Normal rate and regular rhythm. Heart sounds: Normal heart sounds. Pulmonary: Effort: Pulmonary effort is normal. Breath sounds: Normal breath sounds. Genitourinary: Skin: General: Skin is warm and dry. Neurological: General: No focal deficit present. Mental Status: She is alert and oriented to person, place, and time. Psychiatric: Mood and Affect: Mood normal. Behavior: Behavior normal. Thought Content: Thought content normal. Judgment: Judgment normal. Component Latest Ref Rng & Units 12/16/2021 08/03/2022 WBC 3.70 - 11.00 k/uL 5.81 RBC 3.90 - 5.20 m/uL 5.39 (H) Hemoglobin 11.5 - 15.5 g/dL 15.7 (H) Hematocrit 36.0 - 46.0 % 48.3 (H) MCV 80.0 - 100.0 fL 89.6 MCH 26.0 - 34.0 pg 29.1 MCHC 30.5 - 36.0 g/dL 32.5 RDW-CV 11.5 - 15.0 % 12.8 Platelet Count 150 - 400 k/uL 276 MPV 9.0 - 12.7 fL 10.5 Absolute nRBC <0.01 k/uL <0.01 Glucose 74 - 99 mg/dL 92 BUN 7 - 21 mg/dL 15 Creatinine 0.58 - 0.96 mg/dL 0.82 Sodium 136 - 144 mmol/L 139 Potassium 3.7 - 5.1 mmol/L 4.0 Chloride 97 - 105 mmol/L 100 CO2 22 - 30 mmol/L 27 Anion Gap 9 - 18 mmol/L 12 Calcium 8.5 - 10.2 mg/dL 9.0 eGFR >=60 mL/min/1.73m 77 Cholesterol, Total <200 mg/dL 237 (H) Triglyceride <150 mg/dL 96 HDL Cholesterol >39 mg/dL 67 Non HDL Cholesterol <130 mg/dL 170 (H) Fasting Time hrs 12 VLDL Cholesterol <30 mg/dL 19 TC:HDL Ratio <5.10 3.54 LDL Cholesterol <100 mg/dL 151 (H) LDL:HDL Ratio <2.54 2.25 TSH 0.270 - 4.200 mIU/L 2.120 Free T4 0.9 - 1.7 ng/dL 1.3 Vitamin D 25 Hydroxy 31.0 - 80.0 ng/mL 41.6 The 10-year ASCVD risk score (Gilberto BARAKAT, et al., 2019) is: 11% Values used to calculate the score: Age: 72 years Sex: Female Is Non- : No Diabetic: No Tobacco smoker: No Systolic Blood Pressure: 138 mmHg Is BP treated: No HDL Cholesterol: 67 mg/dL Total Cholesterol: 237 mg/dL Assessment and Plan Encounter Diagnosis ICD-10-CM 1. Essential hypertension I10 2. Vitamin D deficiency E55.9 3. Dyslipidemia E78.5 4. Urge incontinence N39.41 Above issues addressed with patient. Patient involved in shared decision making for management of medical issues. Will see EMBEDDED SOFTWARE ENGINEER as needed for lumps on labia. Will get back on track with watching diet. Keep up exercise. History and medications reviewed. Epic updated as needed Refills and/or prescriptions taken care of and meds adjusted as indicated after reviewed history, exam and labs. Health Maintenance reviewed. Updated record and/or ordered tests as recorded. Encouraged on efforts at healthy diet and regular exercise and adequate sleep. Stephanie Coleman MD documented in this encounter [facility] documented as of this encounter (statuses as of 07/26/2022) [facility]08-22-2007 History of Past illness Narrative* Problem Noted Date Resolved Date Lumbago 05/10/2007 06/08/2007 documented as of this encounter (statuses as of 09/07/2022) [address] History of Past illness Narrative* Problem Noted Date Resolved Date Lumbago 05/10/2007 06/08/2007 documented as of this encounter (statuses as of 09/19/2022) [address]-2007 History of Past illness Narrative* Problem Noted Date Resolved Date Lumbago 05/10/2007 06/08/2007 documented as of this encounter (statuses as of 09/23/2022) [address] History of Past illness Narrative* Problem Noted Date Resolved Date Lumbago 05/10/2007 06/08/2007 documented as of this encounter (statuses as of 10/21/2022) [address] History of Past illness Narrative* Problem Noted Date Resolved Date Lumbago 05/10/2007 06/08/2007 documented as of this encounter (statuses as of 11/02/2022) [address] History of Past illness Narrative* Problem Noted Date Resolved Date Lumbago 05/10/2007 06/08/2007 documented as of this encounter (statuses as of 11/12/2022) [address]2007 History of Past illness Narrative* Problem Noted Date Resolved Date Lumbago 05/10/2007 06/08/2007 documented as of this encounter (statuses as of 11/12/2022) [address]2007 History of Past illness Narrative* Problem Noted Date Resolved Date Lumbago 05/10/2007 06/08/2007 documented as of this encounter (statuses as of 11/14/2022) [address] History of Past illness Narrative* Problem Noted Date Resolved Date Lumbago 05/10/2007 06/08/2007 documented as of this encounter (statuses as of 11/15/2022) [address]2007 History of Past illness Narrative* Problem Noted Date Resolved Date Lumbago 05/10/2007 06/08/2007 documented as of this encounter (statuses as of 01/28/2023) [address] History of Past illness Narrative* Problem Noted Date Diagnosed Date Resolved Date Lumbago 05/10/2007 06/08/2007 documented as of this encounter (statuses as of 05/09/2023) [facility]08-22-2007 History of Past illness Narrative* Problem Noted Date Diagnosed Date Resolved Date Lumbago 05/10/2007 06/08/2007 documented as of this encounter (statuses as of 07/08/2023) [facility] note* Diagnosis Inclusion cyst of vulva- Primary Other specified noninflammatory disorder of vulva and perineum documented in this encounter [facility] note* Diagnosis Essential hypertension- Primary Unspecified essential hypertension Vitamin D deficiency Unspecified vitamin D deficiency Dyslipidemia Other and unspecified hyperlipidemia Urge incontinence Breast cancer screening by mammogram IFG (impaired fasting glucose) Impaired fasting glucose Encounter for long-term current use of medication [facility] Diagnosis Breast cancer screening by mammogram- Primary documented in this encounter [facility] note* Diagnosis COVID-19- Primary documented in this encounter [facility] note* Diagnosis Essential hypertension- Primary Unspecified essential hypertension Dyslipidemia Other and unspecified hyperlipidemia IFG (impaired fasting glucose) Impaired fasting glucose Vitamin D deficiency Unspecified vitamin D deficiency Breast cancer screening by mammogram documented in this encounter [facility] for referral (narrative)* Diagnostic Procedure Only (Routine) - Pending Review Specialty Diagnoses / Procedures Referred By Alycia dowling Referred To Contact [facility] Diagnoses Breast cancer screening by mammogram Procedures DEONTE SCREENING W LIZA SCREENING DIGITAL BREAST TOMOSYNTHESIS BI SCREENING MAMMOGRAPHY BI 2-[place] [address] [place] [id number] [facility] [address] [place] [id number] Referral ID Status Reason Start Date Expiration Date Visits Requested Visits Authorized [id number] Pending Review Auto-Generat ed Referral 2 09/12/2023 [facility] Diagnostic Procedure Only (Routine) - Pending Review Specialty Diagnoses / Procedures Referred By Alycia dowling Referred To Contact [facility] Diagnoses Breast cancer screening by mammogram Procedures DEONTE SCREENING SCREENING MAMMOGRAPHY BI 2-VIEW BREAST INC Gwendolyn Lofton APRN.REEL REPAIRER [address] [place] [address] [facility] [address] [place] [address] Referral ID Status Reason Start Date Expiration Date Visits Requested Visits Authorized [id number] Pending Review Auto-Generat ed Referral 09/21/2022 10/18/2023 1 1 [facility] for referral (narrative)* Diagnostic Procedure Only (Routine) - Pending Review Specialty Diagnoses / Procedures Referred By Contac t Referred To Contact [facility] Diagnoses Breast cancer screening by mammogram Procedures DEONTE SCREENING W LIZA SCREENING DIGITAL BREAST TOMOSYNTHESIS BI SCREENING MAMMOGRAPHY BI 2-VIEW BREAST INC CAD Stephanie Coleman MD [address] [place], [place] [id number] [facility] [address] [place] [address] Referral ID Status Reason Start Date Expiration Date Visits Requested Visits Authorized [id number] Pending Review Auto-Generat ed Referral 04/04/2023 05/03/2024 1 1 [facility] Summary Purpose Family History No Family History Records FoundNo Family History Records FoundNo Family History Records FoundNo Family History Records Found Advance Directives No Advanced Directives Records FoundDocuments on File Type Date Recorded 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 DATE CREATED AUTHOR AUTHOR'S ORGANIZ ATION 12/03/2021 [facility] DATE CREATED AUTHOR AUTHOR'S ORGANIZ ATION 10/13/2023 [facility] Source Comments (liz d section and content) In the event this informatio n is protected by the Federal Confidentiality of Alcohol and Drug Abuse Patient Records regulations: The Federal rules restrict any use of the information to criminally investigate or prosecute any alcohol or drug abuse patient.[facility] event this information is protected by the Federal Confidentiality of Alcohol and Drug Abuse Patient Records regulations: The Federal rules restrict any use of the information to criminally investigate or prosecute any alcohol or drug abuse patient.[facility] event this information is protected by the Federal Confidentiality of Alcohol and Drug Abuse Patient Records regulations: The Federal rules restrict any use of the information to criminally investigate or prosecute any alcohol or drug abuse patient.[facility] event this information is protected by the Federal Confidentiality of Alcohol and Drug Abuse Patient Records regulations: The Federal rules restrict any use of the information to criminally investigate or prosecute any alcohol or drug abuse patient.[facility] event this information is protected by the Federal Confidentiality of Alcohol and Drug Abuse Patient Records regulations: The Federal rules restrict any use of the information to criminally investigate or prosecute any alcohol or drug abuse patient.[facility] the event this information is protected by the Federal Confidentiality of Alcohol and Drug Abuse Patient Records regulations: The Federal rules restrict any use of the information to criminally investigate or prosecute any alcohol or drug abuse patient.[facility] the event this information is protected by the Federal Confidentiality of Alcohol and Drug Abuse Patient Records regulations: The Federal rules restrict any use of the information to criminally investigate or prosecute any alcohol or drug abuse patient.[facility] the event this information is protected by the Federal Confidentiality of Alcohol and Drug Abuse Patient Records regulations: The Federal rules restrict any use of the information to criminally investigate or prosecute any alcohol or drug abuse patient.[facility] the event this information is protected by the Federal Confidentiality of Alcohol and Drug Abuse Patient Records regulations: The Federal rules restrict any use of the information to criminally investigate or prosecute any alcohol or drug abuse patient.[facility] the event this information is protected by the Federal Confidentiality of Alcohol and Drug Abuse Patient Records regulations: The Federal rules restrict any use of the information to criminally investigate or prosecute any alcohol or drug abuse patient.[facility] the event this information is protected by the Federal Confidentiality of Alcohol and Drug Abuse Patient Records regulations: The Federal rules restrict any use of the information to criminally investigate or prosecute any alcohol or drug abuse patient.[facility] the event this information is protected by the Federal Confidentiality of Alcohol and Drug Abuse Patient Records regulations: The Federal rules restrict any use of the information to criminally investigate or prosecute any alcohol or drug abuse patient.[facility] the event this information is protected by the Federal Confidentiality of Alcohol and Drug Abuse Patient Records regulations: The Federal rules restrict any use of the information to criminally investigate or prosecute any alcohol or drug abuse patient.[facility] Care Teams (unrecognized sec tion and content) 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 Start Date End Date Stephanie Coleman MD [facility] [place] [address] PCP - General 05/07/09 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 Start Date End Date Stephanie Coleman MD [address] [place] [id number] PCP - General 05/07/09 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 Start Date End Date Stephanie Coleman MD [address] [place] [id number] PCP - General 05/07/09 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 Start Date End Date Stephanie Coleman MD [address] [place] [id number] PCP - General 05/07/09 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 Start Date End Date Stephanie Coleman MD [address] [place] [id number] PCP - General 05/07/09 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 Start Date End Date Stephanie Coleman MD [address] [place] [id number] PCP - General 05/07/09 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 Start Date End Date Stephanie Colmean MD [address] [place], [place] [id number] PCP - General 05/07/09 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 Start Date End Date Stephanie Coleman MD [address] [place], [place] [phone] PCP - General 05/07/09 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 Start Date End Date Stephanie Coleman MD [address] [place], [place] [phone] PCP - General 05/07/09 Reason for Visit (unrecogniz ed section and content) Reason Onset Date Comments F/U 6 months Radiology Mammogram 08/13/2022 at [facility] Reason Comments Mammography order Reason Comments Future Appointment 11-12-22 Reason Comments URI Covid 19 infection Reason Comments Medication Problem Reason Onset Date Comments Follow Up Labs prior Radiology Mammogram 04/04/2023 at [facility] FOR RECORDS PERTAINING TO PATIENTS WHO ARE OR HAVE BEEN ENROLLED IN A CHEMICAL DEPENDENCY/SUBSTANCEABUSE PROGRAM, SOME INFORMATION MAY BE OMITTED. This clinical summary was aggregated from multiple sources. Caution should be exercised in using it in the provision of clinical care. This summary normalizes information from multiple sources, and as a consequence, information in this document may materially change the coding, format and clinical context of patient data. In addition, data may be omitted in some cases. CLINICAL DECISIONS SHOULD BE BASED ON THE PRIMARY CLINICAL RECORDS. [facility]. provides no warranty or guarantee of the accuracy or completeness of information in this document.
== END | disposition home or self-care (01) ==
LOC: OPBI 08:34
PROVIDERS: PCP Internal Medicine; Referring Provider Obstetrics & Gynecology; Visit Provider Obstetrics & Gynecology
DX: Z12.31 Encounter for screening mammogram for malignant neoplasm of breast (principal)
CPT/HCPCS: 77063; 77067

== ENCOUNTER 2024-04-30 09:26 | Emergency (ER) | payer MEDICARE, OTHER, SELFPAY ==
[2024-04-30 09:26] VITALS: BP 182/96; PULSE 97; RESP 16; TEMP 36.1; O2SAT 98; BMI 28.9
--- NOTE | 2024-04-30 09:44 | EKG12_ITS ---
Test Reason : CP Blood Pressure : / mmHG Vent. Rate : 076 BPM Atrial Rate : 076 BPM P-R Int : 148 ms QRS Dur : 086 ms QT Int : 386 ms P-R-T Axes : 048 000 037 degrees QTc Int : 434 ms Sinus rhythm with marked sinus arrhythmia Otherwise normal ECG Confirmed by JORGE ALBERTO JESSICA, GIFTY ([id number]), editor at large LLUVIA MAGDALENO ([id number]) on 05/02/2024 9:31:04 AM Referred By: Confirmed By:GIFTY AZUL MD
--- NOTE | 2024-04-30 09:46 | ED.VIS.CHEST ---
HPI History of Present Illness Chief Complaint: Chest Pain Informant: patient and spouse/S.O. Narrative Narrative: 73-year-old female presenting to the emergency room with chief complaint of chest pain. Patient states that about a week ago she was weed whacking and has had a left chest discomfort since. It is not gotten better or worse. It is more of a dull aching. No tenderness to palpation or pain with moving or deep breathing. States today she felt nauseous and weaker than normal. No palpitations. No vomiting or diarrhea. No fever. No change in cough which she states she usually has due to allergies. She takes Dyazide for hypertension. She notes a normal mammogram within the year. She states the pain seems to move a little bit but mostly around the superior medial aspect of the left breast. [facility] Medical History (Updated 04/30/24 @ 11:[address] Venkat Lockett DO) Skin lesion Personal history of colonic polyps Hypertension History of diverticulitis Hemorrhoids Constipation Arthritis Back problem Home Medications ?Medication ?Instructions ?Recorded ?Last Taken ?Type cholecalciferol (vitamin D3) 125 125 mcg PO DAILY Check with 03/13/20 Unknown History mcg (5,000 unit) capsule primary doctor omega-3 fatty acids 500 mg PO DAILY Check with primary 03/13/20 Unknown History doctor triamterene 37.5 1 tab PO DAILY Check with primary 03/13/20 04/11/20 History mg-hydrochlorothiazide 25 mg tablet doctor methocarbamol 500 mg tablet 500 mg PO Q6H PRN Muscle 07/13/21 Unknown Rx pain/spasm #40 tabs oxycodone-acetaminophen 5 mg-325 1 tab PO Q6H PRN pain 3 days #12 07/13/21 Unknown Rx mg tablet (Percocet) tabs magnesium 200 mg tablet 400 mg PO DAILY 04/30/24 Unknown History niacin 500 mg tablet 500 mg PO DAILY 04/30/24 Unknown History Allergy/AdvReac Type Severity Reaction Status Date / Time mezlocillin (From Mezlin) Allergy Itching Verified 04/30/24 09:26 morphine Allergy Itching Verified 04/30/24 09:26 suture AdvReac NEEDS Verified 04/30/24 09:26 FOLLOW-UP Family History Mother Arthritis Diabetes Hypertension Kidney disease Cancer Skin cancer High cholesterol Father Glioblastoma Surgical History Hx of right breast biopsy History of partial colectomy Hx of abdominal surgery Hx of appendectomy Hx of tonsillectomy Social History Smoking Status: Never smoker second hand exposure: No alcohol intake: current alcohol intake frequency: holidays/special occasions only caffeine: Yes what type of physical activity do you participate in: running, aerobics, weight training and additional details: Boot camp videos frequency: 5-6 times per week ROS ROS ED Constitutional Constitutional ED: Denies chills, fever(s) or weight loss Eyes Eyes: Denies change in vision or diplopia ENT ENT ED: Denies ear pain, rhinorrhea or sore throat Cardiovascular Cardiovascular: Reports as per HPI and chest pain; Denies orthopnea, palpitations or racing heartbeat Respiratory/Chest Respiratory/Chest: Reports cough; Denies dyspnea or orthopnea Gastrointestinal Gastrointestinal: Reports nausea; Denies abdominal pain, diarrhea or vomiting Genitourinary Genitourinary ED: Denies dysuria, hematuria or urinary frequency Musculoskeletal Musculoskeletal: Denies arthralgias or myalgias Integumentary Denies abscess or rash Neurologic Neurologic: Denies headache(s) or weakness Psychiatric Psychiatric: Denies anxiety, depression, suicidal ideation or suicidal thoughts Endocrine Endocrinology: Denies polydipsia, polyphagia or polyuria Allergic/Immunologic Allergic/Immunologic ED: Denies mouth swelling, tongue swelling or urticaria EXAM Physical Exam Const Vital Signs: 04/30/24 09:26 04/30/24 09:56 04/30/24 10:26 Temperature 97 F L Temperature Source Temporal Pulse Rate 97 75 Respiratory Rate 16 19 H Respiratory Effort Normal Non-Labored Blood Pressure 182/96 H 134/81 H Blood Pressure Mean 124 98 Pulse Ox 98 95 Oxygen Delivery Method Room Air Room Air 04/30/24 11:00 Temperature Temperature Source Pulse Rate 76 Respiratory Rate 13 Respiratory Effort Blood Pressure 127/79 H Blood Pressure Mean 95 Pulse Ox 96 Oxygen Delivery Method Room Air Positive well nourished and well developed General Appearance ED: well developed HEENT Reports normocephalic, head/scalp atraumatic and moist mucous membranes Eyes PERRL and EOMs intact bilaterally Neck no lymphadenopathy, supple and no JVD Resp normal respiratory effort and clear to auscultation bilaterally Cardio regular rate, regular rhythm and no murmurs GI normal to inspection, nondistended, normoactive bowel sounds and non-tender Palpation: soft Back/Spine no CVA tenderness and normal ROM Extremity normal to inspection General Extremety ED: Negative for edema General Extremity: Negative for edema Neuro oriented x3 and CN's II-XII intact bilaterally Sensorium / Orientation: alert Motor Exam: strength 5/5 throughout Psych mental status grossly normal Mood & Affect: Negative for depressed or tearful Skin no rashes or lesions noted and no wounds MDM MDM MDM Narrative Medical decision making narrative: Differential diagnosis includes but not limited to pulmonary embolism pneumonia aortic dissection/aneurysm pneumothorax ACS cardiac dysrhythmia chest wall strain pleurisy pleural effusion gastritis esophagitis EKG shows a normal sinus rhythm. My independent interpretation of the chest x-ray is no acute process. White count 6.6 hemoglobin 15.1 platelet count is 269. D-dimer 0.49. Troponin is normal and again this is multiple days of symptoms. Lipase 38 normal LFTs. COVID influenza swabs are negative. Blood glucose is 112 creatinine 0.87. Patient has remained in normal sinus rhythm on the monitor. Patient received Toradol and Zofran with improvement of nausea and pain. At this point I do not have a clear etiology for the patient's symptoms. They are a bit atypical and probable chest wall related. History & Record Review Discussion w/independent historian: Patient and Significant other Lab Data Attestation: I reviewed the patient's lab results. Labs: Laboratory Results - last 24 hr 04/30/24 09:55 WBC 6.6 RBC 5.33 Hgb 15.1 H Hct 47.0 MCV 88.2 MCH 28.3 MCHC 32.1 RDW Std Deviation 42.4 RDW Coeff of Rohini 13.1 Plt Count 269 MPV 10.1 Immature Gran % (Auto) 0.500 Neut % (Auto) 74.0 H Lymph % (Auto) 17.5 L Antelope % (Auto) 5.3 Eos % (Auto) 2.4 Baso % (Auto) 0.3 Absolute Neuts (auto) 4.9 Absolute Lymphs (auto) 1.16 Nucleated RBC % 0 D-Dimer Quant (PE/DVT) 0.49 Sodium 138 Potassium 3.8 Chloride 104 Carbon Dioxide 28.0 Anion Gap 6 BUN 20 H Creatinine 0.87 Estim Creat Clear Calc 63.89 Est GFR (MDRD) Af Amer 83 Est GFR (MDRD) Non-Af 68 BUN/Creatinine Ratio 23.1 H Glucose 112 H Calcium 9.1 Total Bilirubin 0.40 Direct Bilirubin 0.11 AST 21 ALT 24 Alkaline Phosphatase 117 Troponin I High Sens 3 Total Protein 7.3 Albumin 3.8 Globulin 3.5 Lipase 38 Radiography Diagnostic Testing: Clinical Impression(s) from Imaging Studies Chest X-Ray 04/30/24 10:13 IMPRESSION: No acute abnormality is seen. Electronically Signed: Seth Win MD at 10:59 EDT , Discharge Plan Triage Chief Complaint: Chest Pain ED Provider: Venkat Lockett Dx/Rx/DC Orders Clinical Impression: Chest pain Instructions: ED Chest Pain, Uncertain Cause Prescriptions: No Action triamterene-hydrochlorothiazid 37.5-25 mg tablet 1 tab PO DAILY cholecalciferol (vitamin D3) 125 mcg (5,000 unit) capsule 125 mcg PO DAILY omega-3 fatty acids Capsule 500 mg PO DAILY oxycodone-acetaminophen [Percocet] 5-325 mg tablet 1 tab PO Q6H PRN (Reason: pain) 3 Days Qty: 12 0RF methocarbamol 500 mg tablet 500 mg PO Q6H PRN (Reason: Muscle pain/spasm) Qty: 40 0RF magnesium 200 mg tablet 400 mg PO DAILY niacin 500 mg tablet 500 mg PO DAILY Primary Care Provider: Manjula Coleman Referrals: Manjula Coleman MD [Primary Care Provider] - 1 Week if not improving Print Language: Surinamese Disposition Disposition: Home, Self Care
[2024-04-30] MEDS: Ondansetron 4 MG/2 ML Vial IV (09:52)
[2024-04-30] MEDS: Ketorolac 15 MG/ML Vial IV (09:54)
[2024-04-30 10:00] LABS: Absolute Lymphocyte Count 1.16 X10^3/uL (0.83-4.51); Absolute Neutrophil Count 4.9 X10^3/uL (2.0-7.7); Basophil# 0.02 X10^3/uL; Basophil% 0.3 % (0-1); Eosinophil# 0.16 X10^3/uL; Eosinophils% 2.4 % (0-5); Hemoglobin 15.1 g/dL (12.0-15.0); Lymphocyte # 1.16 X10^3/ul (0.83-4.51); Lymphocyte % 17.5 % (19-41); Mean Corp Hgb Conc 32.1 g/dL (32-36); Mean Corpuscular Hgb 28.3 pg (27.0-32.0); Mean Corpuscular Volume 88.2 fL (81-99); Mean Platelet Vol. 10.1 fl (6.2-12.0); Monocyte# 0.35 X10^3/uL; Monocyte% 5.3 % (0-10); NRBC Flagged by Analyzer 0 % (0-5); Neutrophil # 4.89 X10^3/uL (2.7-7.7); Platelet Count 269 K/mm3 (150-450); RBC Distribution Width CV 13.1 % (11.6-14.6); RBC Distribution Width SD 42.4 fl (35.1-43.9); Red Blood Count 5.33 M/mm3 (4.2-5.4); White Blood Count 6.6 K/mm3 (4.4-11.0)
--- NOTE | 2024-04-30 10:13 | RAD_ITS ---
STUDY: X-RAY CHEST REASON FOR EXAM: Female, 73 years old. Chest pain TECHNIQUE: Single AP portable view of the chest. COMPARISON: None. FINDINGS: EKG electrodes are seen. The lungs are clear and expanded. There is no demonstrated pleural abnormality. Normal size heart. Normal mediastinum and olinda. Normal visualized pulmonary arteries. Normal visualized aortic arch and descending thoracic aorta. Normal visualized thoracic spine. There is degenerative osteoarthritis of the bilateral shoulders. There is no demonstrated abnormality of the visualized soft tissue structures of the upper abdomen. RAD/Chest 1 View (Portable) IMPRESSION: No acute abnormality is seen. Electronically Signed: Seth Win MD at 10:59 EDT ,
[2024-04-30 10:19] LABS: AST(SGOT) 21 U/L (15-37); Alanine Aminotransfer ALT/SGPT 24 U/L (13-56); Albumin, Serum 3.8 g/dL (3.2-5.0); Alkaline Phosphatase 117 U/L (45-117); Anion Gap 6 (5-15); BUN 20 mg/dL (7-18); BUN/Creat Ratio 23.1 RATIO (10-20); Bilirubin, Direct 0.11 mg/dL (0.00-0.30); Calcium,Total 9.1 mg/dL (8.5-10.1); Chloride 104 mmol/L (98-107); Creatinine, Serum 0.87 mg/dL (0.55-1.02); D-Dimer Quantitative (DVT/PE) 0.49 FEU/ug/m (0.27-0.49); EST Glomerular Filtration Rate 68 mL/min (>60); Est Glom Filt Rate - Afr Amer 83 mL/min (>60); Estimated Creatinine Clearance 63.89 ml/min; Globulin 3.5 g/dL (2.2-4.2); Glucose 112 mg/dL (74-106); Lipase 38 U/L (13-75); Potassium 3.8 mmol/L (3.5-5.1); Protein, Total 7.3 g/dL (6.4-8.2); Sodium Level 138 mmol/L (136-145); Troponin-I HS (w/2H Reflex) 3 pg/mL (3.0-54.0)
[2024-04-30 10:26] VITALS: BP 134/81; PULSE 75; RESP 19; O2SAT 95
[2024-04-30 11:00] VITALS: BP 127/79; PULSE 76; RESP 13; O2SAT 96
[2024-04-30 11:57] VITALS: BP 119/80; PULSE 79; RESP 14; TEMP 36.4; O2SAT 99
[2024-04-30 11:57] LABS: Reflex Troponin-HS? (from REC) Y
== END 2024-04-30 11:59 | disposition home or self-care (01) ==
PROVIDERS: Emergency Provider Emergency Medicine; PCP Internal Medicine; Visit Provider Emergency Medicine
DX: R07.9 Chest pain, unspecified (principal); I10 Essential (primary) hypertension; Z79.899 Other long term (current) drug therapy; R05.9 Cough, unspecified
CPT/HCPCS: 71045; 80048; 80076; 83690; 84484; 85025; 85379; 87631; 93005; 96374; 96375; 99284; A4216; J2405

== ENCOUNTER → 2024-05-30 | Outpatient (CLI) | payer MEDICARE, OTHER, SELFPAY ==
--- NOTE | 2024-05-30 13:56 | BI_ITS ---
MAMMOGRAPHY - UNILATERAL DIAGNOSTIC: LEFT BREAST REASON FOR EXAM: Female, 74 years old. One month history of left breast pain. Remote right stereotactic breast biopsy. PERTINENT HISTORY: Non-contributory. TECHNIQUE: Digital unilateral breast christoefr (3D mammographic acquisition) in the CC and MLO projections. 2-D mediolateral oblique (MLO) and craniocaudad (CC) views of both breasts were obtained. CAD: Full Field Digital Mammography with Computer Added Detection was performed. COMPARISON: Comparison is made with prior study of October 2023 and October 25, 2022. FINDINGS: Breast Composition: There are scattered areas of fibroglandular density. There are no dominant masses or suspicious calcifications. No other significant abnormalities are identified. There has been no significant change since the prior study. BI/DIAG MAMM W/CAD, UNILAT IMPRESSION: Stable unilateral diagnostic mammogram. With the patient''s history of pain in the left breast, targeted correlation with ultrasound recommended. ASSESSMENT CATEGORY: BIRADS Category 0: Incomplete. Need additional imaging evaluation. A letter regarding these results will be sent to the patient by the facility within 30 days. Approximately 10% of breast cancers are not detected by mammography. A normal mammogram should not delay biopsy of a clinically suspicious abnormality. Electronically Signed: Seth Win MD at 14:52 EDT ,
--- NOTE | 2024-05-30 13:57 | US_ITS ---
STUDY: ULTRASOUND BREAST - LEFT REASON FOR EXAM: Female, 74 years old. Left axillary breast pain. TECHNIQUE: Axial and longitudinal images of the LEFT breast were performed with a high resolution ultrasound transducer. # OF IMAGES: 64 COMPARISON: Comparison is made with prior mammogram done earlier today. FINDINGS: LEFT Breast: The axillary region of the left breast was examined. There are 2, benign appearing lymph nodes. The largest lymph node measures 2.1 cm x 1.1 cm x 0.6 cm. US/Breast Limited Unilateral IMPRESSION: There are 2, benign appearing lymph nodes in the left axilla. ASSESSMENT CATEGORY: BIRADS Category 2: Benign. A letter regarding these results will be sent to the patient by the facility within 30 days. Electronically Signed: Seth Win MD at 15:15 EDT ,
== END | disposition home or self-care (01) ==
LOC: OPBI 13:53
PROVIDERS: PCP Internal Medicine; Referring Provider Internal Medicine; Visit Provider Internal Medicine
DX: N64.4 Mastodynia (principal)
CPT/HCPCS: 76642; 77061; 77065; G0279

== ENCOUNTER → 2024-10-29 | Outpatient (CLI) | payer MEDICARE, OTHER, SELFPAY ==
--- NOTE | 2024-10-29 14:33 | BI_ITS ---
PROCEDURE: SCRN MAMM (CAD)W/LIZA BILAT REASON FOR EXAM: F, Age 74 y/o, presents for annual screening mammogram. Family history of breast cancer in a maternal great aunt. TECHNIQUE: Bilateral screening digital breast tomosynthesis with 2D and 3D images. Computer aided detection. COMPARISON: 05/30/2024. FINDINGS: The breasts are almost entirely fatty. No suspicious masses, areas of developing architectural distortion, or suspicious calcifications. BI/SCRN MAMM (CAD)W/LIZA BILAT IMPRESSION: There is no mammographic evidence of malignancy in either breast. BI-RADS 1: NEGATIVE. RECOMMEND ANNUAL MAMMOGRAPHIC SCREENING. Follow-up code: Routine Follow-up. The patient will be notified of the results by letter. Reading Location: [id number]
== END | disposition home or self-care (01) ==
LOC: OPBI 14:32
PROVIDERS: PCP Internal Medicine; Referring Provider Internal Medicine; Visit Provider Internal Medicine
DX: Z12.31 Encounter for screening mammogram for malignant neoplasm of breast (principal)
CPT/HCPCS: 77063; 77067